=== PATIENT | male | born 1945 | race Caucasian/White ===

== ENCOUNTER → 2023-09-26 13:32 | Outpatient (REF) | payer MEDICARE, OTHER, SELFPAY ==
[2023-09-26 15:54] LABS: % Basophils 0.6 % (0-2); % Eosinophils 1.3 % (0-6); % Immature Granulocytes 0.7 % (0-0.5); % Lymphocytes 7.1 % (20.5-51.1); % Neutrophils 84.3 % (42.2-75.2); Absolute Basophils 0.1 10^3/uL (0-0.2); Absolute Eosinophils 0.1 10^3/uL (0-0.7); Absolute Immature Granulocytes 0.1 10^3/uL (0-0.05); Absolute Lymphocytes 0.8 10^3/uL (1.2-3.4); Absolute Monocytes 0.6 10^3/uL (0.1-0.6); Absolute Neutrophils 9.1 10^3/uL (1.4-6.5); Hematocrit 32.7 % (39.0-52.0); Hemoglobin 10.3 g/dL (13.0-18.0); Mean Corp Hgb Conc. 31.5 g/dL (33.0-37.0); Mean Corpuscular Hgb 29.4 pg (27.0-31.0); Mean Corpuscular Volume 93.4 fL (80.0-94.0); Mean Platelet Volume 9.5 fL (7.4-10.4); Nucleated Red Blood Cells % 0 % (-); Platelet Count 354 10^3/uL (130-400); Red Cell Dist. Width 20.5 % (11.5-14.5); White Blood Cell Count 10.7 10^3/uL (4.8-10.8)
[2023-09-26 16:07] LABS: ALT (SGPT) 21 U/L (0-50); AST (SGOT) 23 U/L (17-59); Albumin 3.7 g/dl (3.5-5.0); Alkaline Phosphatase 82 U/L (38-126); Blood Urea Nitrogen 50 mg/dl (9-20); Carbon Dioxide 30 mmol/L (22-30); Chloride 99 mmol/L (98-107); Glucose 211 mg/dl (70-99); Iron 76 ug/dl (49-181); Potassium 4.2 mmol/L (3.5-5.1); Sodium 135 mmol/L (135-145); Total Bilirubin 1.6 mg/dl (0.2-1.3); Total Protein 6.4 g/dl (6.3-8.2); eGFR 36.11
[2023-09-26 16:16] LABS: Percent Saturation 21 % (20-50); Total Iron Binding Capacity 351 ug/dl (261-462)
[2023-09-26 16:42] LABS: Ferritin 54.4 ng/ml (17.9-464.0)
== END ==
LOC: HWLAB 13:32
PROVIDERS: ATTENDING PHYSICIAN Internal Medicine Hematology & Oncology; FAMILY PHYSICIAN Internal Medicine; REFERRING PHYSICIAN Internal Medicine Cardiovascular Disease
DX: D50.9 Iron deficiency anemia, unspecified (principal); D63.1 Anemia in chronic kidney disease; E85.82 Wild-type transthyretin-related (ATTR) amyloidosis
CPT/HCPCS: 36415; 80053; 82728; 83540; 83550; 85025

== ENCOUNTER → 2023-10-18 13:24 | Outpatient (REF) | payer MEDICARE, OTHER, SELFPAY ==
[2023-10-18 16:04] LABS: % Basophils 0.7 % (0-2); % Eosinophils 2.3 % (0-6); % Immature Granulocytes 0.6 % (0-0.5); % Monocytes 6.8 % (1.7-9.3); % Neutrophils 80.6 % (42.2-75.2); Absolute Basophils 0.1 10^3/uL (0-0.2); Absolute Eosinophils 0.2 10^3/uL (0-0.7); Absolute Immature Granulocytes 0.1 10^3/uL (0-0.05); Absolute Lymphocytes 0.7 10^3/uL (1.2-3.4); Absolute Monocytes 0.6 10^3/uL (0.1-0.6); Absolute Neutrophils 6.5 10^3/uL (1.4-6.5); Hematocrit 28.8 % (39.0-52.0); Hemoglobin 8.9 g/dL (13.0-18.0); Mean Corp Hgb Conc. 30.9 g/dL (33.0-37.0); Mean Corpuscular Hgb 29.2 pg (27.0-31.0); Mean Corpuscular Volume 94.4 fL (80.0-94.0); Mean Platelet Volume 10.2 fL (7.4-10.4); Nucleated Red Blood Cells % 0 % (-); Platelet Count 234 10^3/uL (130-400); Red Blood Cell Count 3.05 10^6/uL (4.70-6.10); Red Cell Dist. Width 19.5 % (11.5-14.5); White Blood Cell Count 8.1 10^3/uL (4.8-10.8)
[2023-10-18 16:17] LABS: Blood Urea Nitrogen 42 mg/dl (9-20); Calcium 9.1 mg/dl (8.4-10.2); Carbon Dioxide 27 mmol/L (22-30); Chloride 98 mmol/L (98-107); Glucose 334 mg/dl (70-99); Potassium 4.5 mmol/L (3.5-5.1); Sodium 133 mmol/L (135-145); eGFR 44.38
== END ==
LOC: HWLAB 13:24
PROVIDERS: ATTENDING PHYSICIAN Student in an Organized Health Care Education/Training Program; FAMILY PHYSICIAN Internal Medicine; OTHER PHYSICIAN Internal Medicine Cardiovascular Disease
DX: K92.1 Melena (principal)
CPT/HCPCS: 36415; 80048; 85025

== ENCOUNTER → 2023-10-29 12:37 | Outpatient (REF) | payer MEDICARE, OTHER, SELFPAY ==
[2023-10-29 15:38] LABS: % Basophils 0.8 % (0-2); % Eosinophils 2.3 % (0-6); % Immature Granulocytes 0.4 % (0-0.5); % Lymphocytes 7.4 % (20.5-51.1); % Monocytes 7.3 % (1.7-9.3); % Neutrophils 81.8 % (42.2-75.2); Absolute Basophils 0.1 10^3/uL (0-0.2); Absolute Eosinophils 0.2 10^3/uL (0-0.7); Absolute Lymphocytes 0.6 10^3/uL (1.2-3.4); Absolute Monocytes 0.6 10^3/uL (0.1-0.6); Absolute Neutrophils 6.2 10^3/uL (1.4-6.5); Hematocrit 29.7 % (39.0-52.0); Hemoglobin 8.6 g/dL (13.0-18.0); Mean Corpuscular Hgb 27.9 pg (27.0-31.0); Mean Corpuscular Volume 96.4 fL (80.0-94.0); Mean Platelet Volume 10.4 fL (7.4-10.4); Nucleated Red Blood Cells % 0 % (-); Platelet Count 299 10^3/uL (130-400); Red Blood Cell Count 3.08 10^6/uL (4.70-6.10); Red Cell Dist. Width 18.1 % (11.5-14.5); White Blood Cell Count 7.5 10^3/uL (4.8-10.8)
[2023-10-29 15:49] LABS: Iron 47 ug/dl (49-181)
[2023-10-29 15:59] LABS: Percent Saturation 12 % (20-50); Total Iron Binding Capacity 375 ug/dl (261-462)
[2023-10-29 16:21] LABS: Ferritin 18.8 ng/ml (17.9-464.0)
== END ==
LOC: HWLAB 12:37
PROVIDERS: ATTENDING PHYSICIAN Internal Medicine Hematology & Oncology; FAMILY PHYSICIAN Internal Medicine; REFERRING PHYSICIAN Internal Medicine Cardiovascular Disease
DX: D50.9 Iron deficiency anemia, unspecified (principal); D63.1 Anemia in chronic kidney disease; E85.82 Wild-type transthyretin-related (ATTR) amyloidosis; N18.30 Chronic kidney disease, stage 3 unspecified
CPT/HCPCS: 36415; 82728; 83540; 83550; 85025

== ENCOUNTER 2023-11-09 14:06 | Emergency (ER) | payer MEDICARE, OTHER, SELFPAY ==
[2023-11-09 14:14] VITALS: BP 97/48
--- NOTE | 2023-11-09 14:45 | ED.GENMED ---
History of Present Illness
General
Chief Complaint: Fall
Source: patient
Exam Limitations: none
Time Seen by Provider: 11/09/23 14:44
Nursing documentation reviewed up to this point in time: agreed with
Travel History
Have you had any contact with someone who has COVID-19?: No
Do you have any symptoms of coronavirus? Fever > 100 degrees, chills, cough, shortness of breath, sore throat, loss of taste or smell, muscle aches, or headache?: No
History of Present Illness
History of Present Illness:
78-year-old male with sleep apnea on CPAP, A-fib on Eliquis, CHF, CAD, HTN, HLD, CKD stage III, NIDDM, cardiac stent presents with skin tears to the left forearm from scraping the areas on wall when his wheeled desk chair moved as he was reaching
for something in his desk. heard him fall and came immediately, no LOC, states 'he tapped' the back of his head on the wall. Pt denies headache, neck pain. Denies any other injury.
Past History
Past History
ED Past Medical History: Arrthythmia (Atrial fibrillation), CAD, Hypercholesterolemia, NIDDM and Other (bph, anemia-Iron Infusions, Kidney disease, Subdural hematoma, Cardiac Amyloidosis); Negative HTN
ED Past Surgical History: Cardiac (Stent), Orthopedic (Bilateral carpal tunnel, Left and right rotator cuff repair, Back surgery X 3, Right ankle surgery, ) and Other (Craniotomy)
Social History
Tobacco: Non-smoker
Alcohol: None
Drug: None
Personal:
Living: with family
Employment: Retired
Family History
Family History: Other (Noncontributory)
Review of Systems
Review of Systems
Allergies reviewed?: Yes
All Other Systems: ROS reviewed and negative except as documented in HPI and ROS
Respiratory: Denies trouble breathing
Cardiac: Denies chest pain or syncope
ABD/GI: Denies abdominal pain or nausea
: Denies incontinence
Musculoskeletal: Denies neck pain or back pain
Skin: Reports other (Deep scrapes lower aspect of left forearm, skin tear proximal left forearm)
Neurological: Denies dizzy, headache, weakness or numbness
Phy Exam
Physical Exam
Physical Exam:
GENERAL: No acute distress. A&Ox3.
CONSTITUTIONAL: Afebrile.
EYES: PERRL, conjunctivae normal
Neck: Supple
ENMT: moist mucus membranes, Pharynx nl
RESPIRATORY: Regular respirations, nonlabored, lungs clear.
CARDIOVASCULAR: Regular rate and rhythm, no murmurs, no rubs.
GI: Soft, nontender, normal BS
MUSCULOSKELETAL: No spinal bony tenderness. Full ROM comfortably LUE, no bony tenderness. Moves with ease. Well perfused.
SKIN: Warm, dry, pink, deep clean abrasions distal left forearm. Skin tear left proximal forearm.
PSYCH: Normal mood and affect. Well kept, interactive and appropriate
NEUROLOGIC: Awake, alert and oriented. No focal neurological deficits
Course
Orders/Labs/Results
Orders:
Orders
11/09/23 14:[address] [CT Head W/o Iv Contrast] Urgent
Comment:
Reason For Exam: fall on Eliquis
11/09/23 15:42
Lidocaine/Epinephrine/Tetracai [Let Topical Anesthetic Gel] 6 ml TOPICAL NOW STA
Vital Signs
Initial and Last Documented VS:
Initial Vital Signs
Temp Pulse Resp BP Pulse Ox
97.1 F 71 18 97/48 97
11/09/23 14:14 11/09/23 14:14 11/09/23 14:14 11/09/23 14:14 11/09/23 14:14
Last Documented Vital Signs
Temp Pulse Resp BP Pulse Ox
97.1 F 71 18 97/48 97
11/09/23 14:14 11/09/23 14:14 11/09/23 14:14 11/09/23 14:14 11/09/23 14:14
Procedures
Laceration Closure
Left upper forearm:
Status of Wound: clean
Preparation: cleaned with saline
Revision/Debridement: routine- no revision
Type of Closure: Dermabond-skin glue (wound edges glued to 1/2 of the wound, the other half skin is avulsed raw skin exposed, no significant bleeding, cleansed and antibiotici ointment applied, nonstick and sterile gauze dressing applied. )
MDM/Problems Addressed
MDM/Problems Addressed:
78-year-old male with sleep apnea on CPAP, A-fib on Eliquis, CHF, CAD, HTN, HLD, CKD stage III, NIDDM, cardiac stent presents with skin tears to the left forearm from scraping the areas on wall when his wheeled desk chair moved as he was reaching
for something in his desk. heard him fall and came immediately, no LOC, states 'he tapped' the back of his head on the wall. Pt denies headache, neck pain. Denies any other injury.
Head CT no acute intracranial abnormality
Wounds on left forearm numbed with LET, washed with soap and water, antibiotic ointment and nonstick and gauze dressing applied to lower forearm wounds.
Chronic conditions affecting care: HTN and Arrhythmia (on Eliquis)
*Critical Care Note
Total Time (30-74mins, 75-104mins- exclusive of procedures): Not Applicable
ED Attending Note
-
Portions of this chart may have been created with voice recognition software.� Occasional wrong word or��sound alike� substitutions may have occurred due to the inherent limitations of voice recognition software.
Discharge Plan
Departure
Patient Disposition: Home (Routine Discharge)
Date of Disposition: 11/09/23
Time of Disposition: 16:22
Patient with high blood pressure during this ER visit?: No
Condition: Good
Discharge Problem:
Fall from chair, Skin tear of left forearm without complication, Abrasion of left forearm
Instructions: Laceration Repair With Glue (DC), Skin Abrasions (DC)
Prescriptions:
No Action
atorvastatin 40 MG tablet
40 mg PO HS
cholecalciferol (vitamin D3) 5,000 UNIT tablet
5,000 unit PO DAILY
Trulicity 4.5 MG/0.5 ML pen injector
4.5 mg SQ SCHMIDT
ropinirole 2 MG tablet
4 mg PO BID
pantoprazole 40 MG tablet,delayed release (DR/EC)
40 mg PO DAILY
tamsulosin 0.4 mg Capsule
0.4 mg PO DAILY
ezetimibe 10 mg Tablet
10 mg PO DAILY
dapagliflozin propanediol [Farxiga] 10 mg Tablet
10 mg PO DAILY
Vyndamax 61 mg Capsule
61 mg PO DAILY
Eliquis 5 mg Tablet
5 mg PO BID Qty: 0 0RF
Rx Instructions:
Can resume Eliquis in 24 hours from discharge date
prednisone 10 mg Tablet
10 mg PO DIRECTED
Patient Comments:
Needs to complete one more day of 10mg then stop
famotidine 40 mg Tablet
40 mg PO DAILY PRN (Reason: heartburn)
fluticasone propionate 50 mcg/actuation [place],Suspension
1 spray INTRANASAL DAILY
torsemide 20 mg tablet
20 mg PO DAILY Qty: 30 11RF
metoprolol succinate 25 mg Tablet Extended Release 24 Hr
12.5 mg PO DAILY 30 Days Qty: 15 0RF
amiodarone [Pacerone] 200 mg Tablet
200 mg PO BID 30 Days Qty: 60 0RF
glimepiride 2 mg Tablet
2 mg PO DAILY Qty: 0 0RF
Referrals:
Garry Marie MD [Family Provider] - As needed
Activity Restrictions/Additional Instructions:
As we discussed, change the dressing in 2 days.
You may briefly wet the areas in the shower, just don't rub the glued areas.
Apply antibiotic ointment on the raw areas, apply nonstick dressing and gauze wrap
Keep wound clean, dry and covered daily until well healed (about 2-3 weeks).
Interventions
Interventions:
*Risk Screen - Suicide Last Done: 11/09/23 14:14
*General Assessment Last Done: 11/09/23 14:14
*Neglect/Abuse Screening Last Done: 11/09/23 14:14
ED-Musculoskeletal Assessment Last Done: 11/09/23 14:42
ED- Neurological Assessment Last Done: 11/09/23 14:41
ED-Skin Assessment Last Done: 11/09/23 14:41
Discharge Date and Time
Print Language: L[place]
[2023-11-09] MEDS: LET TOPICAL ANESTHETIC GEL 6 ML TOPICAL (16:15)
[2023-11-09 16:30] VITALS: BP 96/50
== END 2023-11-09 16:30 | disposition home or self-care (01) ==
LOC: EMR 14:06
PROVIDERS: EMERGENCY PHYSICIAN Emergency Medicine; FAMILY PHYSICIAN Internal Medicine
DX: S50.812A Abrasion of left forearm, initial encounter (principal); S51.812A Laceration without foreign body of left forearm, initial encounter; W07.XXXA Fall from chair, initial encounter; G47.30 Sleep apnea, unspecified; I48.91 Unspecified atrial fibrillation; I25.10 Atherosclerotic heart disease of native coronary artery without angina pectoris; I13.0 Hypertensive heart and chronic kidney disease with heart failure and stage 1 through stage 4 chronic kidney disease, or unspecified chronic kidney disease; I50.9 Heart failure, unspecified; E11.22 Type 2 diabetes mellitus with diabetic chronic kidney disease; E78.00 Pure hypercholesterolemia, unspecified; E78.5 Hyperlipidemia, unspecified; D64.9 Anemia, unspecified; N40.0 Benign prostatic hyperplasia without lower urinary tract symptoms; N18.30 Chronic kidney disease, stage 3 unspecified; Z95.5 Presence of coronary angioplasty implant and graft; Z79.01 Long term (current) use of anticoagulants
CPT/HCPCS: 99284; 12001; 70450

== ENCOUNTER → 2023-11-12 15:56 | Outpatient (REF) | payer MEDICARE, OTHER, SELFPAY | LOC: PAVMRI 15:56 | PROVIDERS: ATTENDING PHYSICIAN Physician Assistant Medical; FAMILY PHYSICIAN Internal Medicine | DX: M54.50 Low back pain, unspecified (principal); M48.062 Spinal stenosis, lumbar region with neurogenic claudication; Z98.1 Arthrodesis status | CPT/HCPCS: 72148 ==

== ENCOUNTER → 2023-11-13 11:50 | Outpatient (REF) | payer MEDICARE, OTHER, SELFPAY ==
[2023-11-13 13:06] LABS: % Basophils 0.7 % (0-2); % Immature Granulocytes 0.7 % (0-0.5); % Lymphocytes 6.4 % (20.5-51.1); % Monocytes 5.8 % (1.7-9.3); % Neutrophils 84.4 % (42.2-75.2); Absolute Basophils 0.1 10^3/uL (0-0.2); Absolute Eosinophils 0.2 10^3/uL (0-0.7); Absolute Immature Granulocytes 0.1 10^3/uL (0-0.05); Absolute Lymphocytes 0.6 10^3/uL (1.2-3.4); Absolute Monocytes 0.5 10^3/uL (0.1-0.6); Absolute Neutrophils 7.2 10^3/uL (1.4-6.5); Hematocrit 29.4 % (39.0-52.0); Hemoglobin 8.7 g/dL (13.0-18.0); Mean Corp Hgb Conc. 29.6 g/dL (33.0-37.0); Mean Corpuscular Hgb 28.8 pg (27.0-31.0); Mean Corpuscular Volume 97.4 fL (80.0-94.0); Mean Platelet Volume 9.8 fL (7.4-10.4); Nucleated Red Blood Cells % 0.2 % (-); Platelet Count 262 10^3/uL (130-400); Red Blood Cell Count 3.02 10^6/uL (4.70-6.10); Red Cell Dist. Width 22.5 % (11.5-14.5); White Blood Cell Count 8.6 10^3/uL (4.8-10.8)
[2023-11-13 13:22] LABS: Blood Urea Nitrogen 39 mg/dl (9-20); Calcium 9.3 mg/dl (8.4-10.2); Carbon Dioxide 24 mmol/L (22-30); Chloride 101 mmol/L (98-107); Glucose 150 mg/dl (70-99); Potassium 4.2 mmol/L (3.5-5.1); Sodium 138 mmol/L (135-145); eGFR 31.82
[2023-11-13 13:24] LABS: NT-proBNP 1960 pg/ml
[2023-11-13 13:53] LABS: Normal RBC Morphology No
[2023-11-13 13:55] LABS: Target Cells FEW
[2023-11-13 13:56] LABS: Poikilocytosis Slight; Tear Drop Red Blood Cells FEW
[2023-11-13 13:57] LABS: Ovalocytes FEW
== END ==
LOC: REG 11:50
PROVIDERS: ATTENDING PHYSICIAN Internal Medicine Cardiovascular Disease; FAMILY PHYSICIAN Internal Medicine
DX: I10 Essential (primary) hypertension (principal); I50.20 Unspecified systolic (congestive) heart failure
CPT/HCPCS: 36415; 80048; 83880; 85025

== ENCOUNTER 2023-11-26 15:38 | Outpatient (RCR) | payer MEDICARE, OTHER, SELFPAY ==
[2023-11-26 12:01] LABS: % Basophils 0.6 % (0-2); % Eosinophils 1.9 % (0-6); % Immature Granulocytes 0.5 % (0-0.5); % Lymphocytes 7.1 % (20.5-51.1); % Monocytes 8.9 % (1.7-9.3); Absolute Eosinophils 0.1 10^3/uL (0-0.7); Absolute Lymphocytes 0.5 10^3/uL (1.2-3.4); Absolute Monocytes 0.6 10^3/uL (0.1-0.6); Absolute Neutrophils 5.2 10^3/uL (1.4-6.5); Hematocrit 32.3 % (39.0-52.0); Hemoglobin 9.8 g/dL (13.0-18.0); Mean Corp Hgb Conc. 30.3 g/dL (33.0-37.0); Mean Corpuscular Hgb 29.8 pg (27.0-31.0); Mean Corpuscular Volume 98.2 fL (80.0-94.0); Mean Platelet Volume 10.1 fL (7.4-10.4); Nucleated Red Blood Cells % 0 % (-); Platelet Count 248 10^3/uL (130-400); Red Blood Cell Count 3.29 10^6/uL (4.70-6.10); Red Cell Dist. Width 21.5 % (11.5-14.5); White Blood Cell Count 6.4 10^3/uL (4.8-10.8)
== END 2023-12-11 23:59 | disposition home or self-care (01) ==
LOC: OID 15:38
PROVIDERS: ATTENDING PHYSICIAN Internal Medicine Hematology & Oncology
DX: D50.9 Iron deficiency anemia, unspecified (principal); D63.1 Anemia in chronic kidney disease; E85.82 Wild-type transthyretin-related (ATTR) amyloidosis
CPT/HCPCS: 85025; 86850; 86900; 86901; 86920

== ENCOUNTER → 2023-11-28 17:37 | Outpatient (REF) | payer MEDICARE, OTHER, SELFPAY ==
[2023-11-28 18:19] LABS: % Basophils 0.7 % (0-2); % Eosinophils 2.8 % (0-6); % Immature Granulocytes 0.3 % (0-0.5); % Lymphocytes 6.9 % (20.5-51.1); % Monocytes 8.7 % (1.7-9.3); % Neutrophils 80.6 % (42.2-75.2); Absolute Basophils 0.1 10^3/uL (0-0.2); Absolute Eosinophils 0.2 10^3/uL (0-0.7); Absolute Lymphocytes 0.5 10^3/uL (1.2-3.4); Absolute Monocytes 0.7 10^3/uL (0.1-0.6); Absolute Neutrophils 6.1 10^3/uL (1.4-6.5); Mean Corp Hgb Conc. 30.3 g/dL (33.0-37.0); Mean Corpuscular Hgb 29.5 pg (27.0-31.0); Mean Corpuscular Volume 97.3 fL (80.0-94.0); Mean Platelet Volume 9.9 fL (7.4-10.4); Nucleated Red Blood Cells % 0 % (-); Platelet Count 269 10^3/uL (130-400); Red Blood Cell Count 3.39 10^6/uL (4.70-6.10); Red Cell Dist. Width 20.9 % (11.5-14.5); White Blood Cell Count 7.6 10^3/uL (4.8-10.8)
[2023-11-28 18:32] LABS: Blood Urea Nitrogen 52 mg/dl (9-20); Calcium 9.5 mg/dl (8.4-10.2); Carbon Dioxide 29 mmol/L (22-30); Chloride 98 mmol/L (98-107); Glucose 112 mg/dl (70-99); Potassium 3.9 mmol/L (3.5-5.1); Sodium 138 mmol/L (135-145); eGFR 30.09
== END ==
LOC: REG 17:37
PROVIDERS: ATTENDING PHYSICIAN Internal Medicine Cardiovascular Disease; FAMILY PHYSICIAN Internal Medicine; OTHER PHYSICIAN Emergency Medicine; OTHER PHYSICIAN Nurse Practitioner Primary Care
DX: D50.9 Iron deficiency anemia, unspecified (principal); D63.1 Anemia in chronic kidney disease; E85.82 Wild-type transthyretin-related (ATTR) amyloidosis
CPT/HCPCS: 36415; 80048; 85025

== ENCOUNTER → 2023-11-30 12:58 | Outpatient (REF) | payer MEDICARE, OTHER, SELFPAY ==
[2023-11-30 14:25] LABS: Urine Albumin Trace (Neg - Trace); Urine Bilirubin Negative (Negative); Urine Character Clear (Clear); Urine Color Yellow; Urine Glucose 3+ (Negative); Urine Ketone Negative (Negative); Urine Leukocyte Negative (Negative); Urine Nitrite Negative (Negative); Urine Occult Blood Negative (Negative); Urine Urobilinogen 2+ (Neg - 1+)
[2023-11-30 14:28] LABS: % Basophils 0.7 % (0-2); % Eosinophils 2.7 % (0-6); % Immature Granulocytes 0.3 % (0-0.5); % Lymphocytes 7.6 % (20.5-51.1); % Monocytes 8.5 % (1.7-9.3); % Neutrophils 80.2 % (42.2-75.2); Absolute Basophils 0.1 10^3/uL (0-0.2); Absolute Eosinophils 0.2 10^3/uL (0-0.7); Absolute Lymphocytes 0.6 10^3/uL (1.2-3.4); Absolute Monocytes 0.6 10^3/uL (0.1-0.6); Absolute Neutrophils 6.1 10^3/uL (1.4-6.5); Hematocrit 33.7 % (39.0-52.0); Hemoglobin 9.9 g/dL (13.0-18.0); Mean Corp Hgb Conc. 29.4 g/dL (33.0-37.0); Mean Corpuscular Hgb 29.3 pg (27.0-31.0); Mean Corpuscular Volume 99.7 fL (80.0-94.0); Mean Platelet Volume 9.7 fL (7.4-10.4); Nucleated Red Blood Cells % 0 % (-); Platelet Count 225 10^3/uL (130-400); Red Blood Cell Count 3.38 10^6/uL (4.70-6.10); Red Cell Dist. Width 20.3 % (11.5-14.5); White Blood Cell Count 7.5 10^3/uL (4.8-10.8)
[2023-11-30 15:02] LABS: ALT (SGPT) 17 U/L (0-50); AST (SGOT) 21 U/L (17-59); Alkaline Phosphatase 98 U/L (38-126); Blood Urea Nitrogen 44 mg/dl (9-20); Calcium 9.4 mg/dl (8.4-10.2); Carbon Dioxide 31 mmol/L (22-30); Chloride 102 mmol/L (98-107); Glucose 108 mg/dl (70-99); Iron 52 ug/dl (49-181); Magnesium 2.5 mg/dl (1.6-2.3); Potassium 4.2 mmol/L (3.5-5.1); Sodium 139 mmol/L (135-145); Total Bilirubin 1.7 mg/dl (0.2-1.3); Total Cholesterol 69 mg/dl (50-199); Total Protein 6.4 g/dl (6.3-8.2); Triglyceride 63 mg/dl (10-149); Uric Acid 9.5 mg/dl (3.5-8.5); Very Low Density Lipoprotein 12 mg/dl (0-30); eGFR 33.74
[2023-11-30 15:08] LABS: HDL Cholesterol 31 mg/dl; LDL Cholesterol, Calculated 26 mg/dl
[2023-11-30 15:11] LABS: Percent Saturation 14 % (20-50); Total Iron Binding Capacity 353 ug/dl (261-462)
[2023-11-30 15:15] LABS: Protein/creatinine Ratio 0.5; Urine Protein 32 mg/dl
[2023-11-30 15:19] LABS: Alkaline Phosphatase 98 U/L (38-126)
[2023-11-30 15:20] LABS: Microalbumin, Random Urine 12.5 mg/dl (0.6-1.7); Microalbumin/creatinine Ratio 191.7 mg/g
[2023-11-30 15:27] LABS: Free T4 1.89 ng/dl (0.78-2.19); Total Thyroxine 6.87 ug/dl (5.5-11.0); Vitamin D, 25-OH*** 50.3 ng/mL (30-80)
[2023-11-30 15:44] LABS: Ferritin 31.8 ng/ml (17.9-464.0)
[2023-11-30 16:16] LABS: Folate 13.7 ng/ml (2.76-20); Vitamin B12 592 pg/ml (239-931)
[2023-12-01 10:34] LABS: Glycohemoglobin (HgbA1c) 5.8 % (4.0-5.6)
== END ==
LOC: REG 12:58
PROVIDERS: ATTENDING PHYSICIAN Internal Medicine Endocrinology, Diabetes & Metabolism; FAMILY PHYSICIAN Internal Medicine; OTHER PHYSICIAN Emergency Medicine; OTHER PHYSICIAN Internal Medicine Cardiovascular Disease
DX: E11.65 Type 2 diabetes mellitus with hyperglycemia (principal); E78.2 Mixed hyperlipidemia; I10 Essential (primary) hypertension; E55.9 Vitamin D deficiency, unspecified; D51.9 Vitamin B12 deficiency anemia, unspecified; I12.9 Hypertensive chronic kidney disease with stage 1 through stage 4 chronic kidney disease, or unspecified chronic kidney disease; N18.30 Chronic kidney disease, stage 3 unspecified; K92.1 Melena; N18.31 Chronic kidney disease, stage 3a; N17.9 Acute kidney failure, unspecified
CPT/HCPCS: 36415; 80053; 80061; 81003; 82043; 82306; 82570; 82607; 82728; 82746; 83036; 83540; 83550; 83735; 84075; 84156; 84436; 84439; 84443; 84550; 85025

== ENCOUNTER 2023-12-01 09:37 | Emergency (ER) | payer MEDICARE, OTHER, SELFPAY ==
[2023-12-01 09:38] VITALS: BP 122/72
[2023-12-01 09:43] VITALS: BP 122/72
[2023-12-01 09:50] VITALS: BMI 30.1
[2023-12-01 10:00] VITALS: BP 97/62
[2023-12-01 10:13] LABS: % Basophils 0.9 % (0-2); % Eosinophils 1.5 % (0-6); % Immature Granulocytes 0.3 % (0-0.5); % Lymphocytes 8.3 % (20.5-51.1); % Monocytes 8.5 % (1.7-9.3); % Neutrophils 80.5 % (42.2-75.2); Absolute Basophils 0.1 10^3/uL (0-0.2); Absolute Eosinophils 0.1 10^3/uL (0-0.7); Absolute Lymphocytes 0.5 10^3/uL (1.2-3.4); Absolute Monocytes 0.6 10^3/uL (0.1-0.6); Absolute Neutrophils 5.2 10^3/uL (1.4-6.5); Hematocrit 32.9 % (39.0-52.0); Hemoglobin 9.8 g/dL (13.0-18.0); Mean Corp Hgb Conc. 29.8 g/dL (33.0-37.0); Mean Corpuscular Hgb 28.7 pg (27.0-31.0); Mean Corpuscular Volume 96.5 fL (80.0-94.0); Mean Platelet Volume 9.9 fL (7.4-10.4); Nucleated Red Blood Cells % 0 % (-); Platelet Count 249 10^3/uL (130-400); Red Blood Cell Count 3.41 10^6/uL (4.70-6.10); Red Cell Dist. Width 20.2 % (11.5-14.5); White Blood Cell Count 6.5 10^3/uL (4.8-10.8)
[2023-12-01 10:16] LABS: ALT (SGPT) 17 U/L (0-50); AST (SGOT) 23 U/L (17-59); Albumin 3.9 g/dl (3.5-5.0); Alkaline Phosphatase 92 U/L (38-126); Blood Urea Nitrogen 47 mg/dl (9-20); Calcium 9.2 mg/dl (8.4-10.2); Carbon Dioxide 27 mmol/L (22-30); Chloride 103 mmol/L (98-107); Estimated Creatinine Clearance 35 ml/min; Glucose 108 mg/dl (70-99); Potassium 4.1 mmol/L (3.5-5.1); Sodium 140 mmol/L (135-145); Total Bilirubin 1.7 mg/dl (0.2-1.3); eGFR 31.82
--- NOTE | 2023-12-01 10:33 | ED.GENMED ---
History of Present Illness
General
Chief Complaint: Abdominal Symptoms
Source: patient, records and spouse
Exam Limitations: none
Time Seen by Provider: 12/01/23 09:39
Nursing documentation reviewed up to this point in time: agreed with
Travel History
Have you had any contact with someone who has COVID-19?: No
Do you have any symptoms of coronavirus? Fever > 100 degrees, chills, cough, shortness of breath, sore throat, loss of taste or smell, muscle aches, or headache?: No
History of Present Illness
History of Present Illness:
Patient is a 78-year-old male who presents to the emergency department with nausea and vomiting repeatedly since yesterday and feeling dehydrated. Patient denies syncope but does feel weak and lightheaded. Patient denies any abdominal pain, chest
pain, shortness of breath or palpitations. Patient denies any hematemesis. Patient denies any melena or hematochezia. Patient has a history of GI issues and melena but denies any of that today. Patient denies any syncope or falling. Patient
denies any recent injuries.
Past History
Past History
ED Past Medical History: Arrthythmia (Atrial fibrillation), CAD, Hypercholesterolemia, NIDDM and Other (bph, anemia-Iron Infusions, Kidney disease, Subdural hematoma, Cardiac Amyloidosis); Negative HTN
ED Past Surgical History: Cardiac (Stent), Orthopedic (Bilateral carpal tunnel, Left and right rotator cuff repair, Back surgery X 3, Right ankle surgery, ) and Other (Craniotomy)
Social History
Tobacco: Non-smoker
Alcohol: None
Drug: None
Personal:
Living: with family
Employment: Retired
Family History
Family History: Other (Noncontributory)
Review of Systems
Review of Systems
All Other Systems: ROS reviewed and negative except as documented in HPI and ROS
Constitutional: Reports fatigue; Denies fever or chills
EENT: Reports no symptoms
Respiratory: Reports no symptoms
Cardiac: Reports no symptoms
ABD/GI: Reports nausea, vomiting and anorexia; Denies abdominal pain, diarrhea, constipated, bloody stools or black stools
: Reports no symptoms
Musculoskeletal: Reports no symptoms
Skin: Reports no symptoms
Neurological: Reports no symptoms
Hematologic/Lymphatic: Reports no symptoms
Phy Exam
Physical Exam
Physical Exam:
Physical Exam
General: mild distress, alert and appropriate, well nourished, dry mucous membranes
HENT: Normocephalic, supple with no lymphadenopathy, no thyromegaly
Eyes: Clear sclera, conjuctiva without injection
Heart: Regular rhythm and rate. No S3, S4. No murmur.
Lungs: No respiratory distress, no stridor, lung sounds clear and equal bilaterally
Abdomen: Soft, nontender, no organomegaly, enderness, BS good
Neuro: Alert and oriented x 3, CN II - XII intact, no motor focality, no cerebellar dysfunction
Skin: no rash
Psychiatric: well kept. interactive and cooperative
Extremities: No cyanosis, tenderness. Trace pretibial and ankle edema bilaterally
Scores
Heart Failure Risk
Heart Failure Risk Score: Not Applicable
Heart Score for Chest Pain Patients
STEMI patient?: Not applicable
Withdrawal Assessment of Alcohol
Withdrawal Assessment Completed?: Not applicable
Course
Orders/Labs/Results
Orders:
Orders
12/01/23 09:46
CMP [Comprehensive Metabolic Panel] Urgent
Complete Blood Count/With Diff Urgent
Lipase Urgent
12/01/23 10:32
0.9% Sodium Chloride 1000 ml [Nss] 1,000 ml IV BOLUS
Ondansetron Injectable [Zofran] 4 mg IV NOW STA
Pantoprazole [Protonix IV] 80 mg IV NOW STA
Sucralfate [Carafate] 1 gram PO NOW STA
12/01/23 10:33
Add On- LAB Urgent
Tests Added?: lipase
12/01/23 10:38
Electrocardiogram (*1) Urgent
Reason for Study: Fatigue / Weakness
EKG- Treatment ONCE
12/01/23 10:45
Sterile Water [Sterile Water For Injection] 20 ml .ROUTE .STK-MED
12/01/23 10:52
Troponin I Urgent
Abnormal Lab Results
12/01/23 12/01/23
09:46 10:52
RBC 3.41 L 10^6/uL
(4.70-6.10)
Hgb 9.8 L g/dL
(13.0-18.0)
Hct 32.9 L %
(39.0-52.0)
MCV 96.5 H fL
(80.0-94.0)
MCHC 29.8 L g/dL
(33.0-37.0)
RDW 20.2 H %
(11.5-14.5)
Absolute Lymphs (auto) 0.5 L 10^3/uL
(1.2-3.4)
Neutrophils % 80.5 H %
(42.2-75.2)
Lymphocytes % 8.3 L %
(20.5-51.1)
BUN 47 H mg/dl
(9-20)
Creatinine 2.1 H mg/dL
(0.7-1.3)
Glucose 108 H mg/dl
(70-99)
Total Bilirubin 1.7 H mg/dl
(0.2-1.3)
Troponin I 0.189 H* ng/ml
Total Protein 6.0 L g/dl
(6.3-8.2)
12/01/23 09:46
12/01/23 09:46
Vital Signs
Initial and Last Documented VS:
Initial Vital Signs
Temp Pulse Resp BP Pulse Ox
97.7 F 83 16 122/72 94
12/01/23 09:38 12/01/23 09:38 12/01/23 09:38 12/01/23 09:38 12/01/23 09:38
Last Documented Vital Signs
Temp Pulse Resp BP Pulse Ox
97.7 F 83 16 122/72 94
12/01/23 09:38 12/01/23 09:38 12/01/23 09:38 12/01/23 09:38 12/01/23 09:38
*Pulse Oximetry
Patient hypoxic: no
*EKG
Interpreted by ED Provider?: Yes
EKG Intrepretation Date: 12/01/23
EKG Intrepretation Time: 12:48
Interpretation: abnormal
Comparison EKG: changes noted (Longer QT but otherwise unremarkable)
Heart Rate: 64
Rate: normal
Rhythm: sinus
[place]: left axis deviation
Interval: first degree heart block and long QT
QRS Pattern: normal QRS
Ischemia: non-specific ST changes
*Package Pick Up Interpretation
Rate: normal
Interpretation: normal
Heart Rate: 64
Rhythm: sinus
*Critical Care Note
Total Time (30-74mins, 75-104mins- exclusive of procedures): Not Applicable
Update Note
Update Note:
Patient is doing better. Patient has a prescription for Zofran. However looking at the patient's QT interval it does appear long. Will switch the patient to Phenergan. Patient will continue other medications although will hold the turosemide.
ED Attending Note
-
Portions of this chart may have been created with voice recognition software.� Occasional wrong word or��sound alike� substitutions may have occurred due to the inherent limitations of voice recognition software.
Discharge Plan
Departure
Patient Disposition: Home (Routine Discharge)
Date of Disposition: 12/01/23
Time of Disposition: 12:50
Patient with high blood pressure during this ER visit?: No
Condition: Fair
Covid-19: Not Applicable
Discharge Problem:
Acute dehydration, Nausea & vomiting, Long QT interval
Instructions: Dehydration, Adult (DC), [place] Diet, Nausea and Vomiting, Adult (DC)
Prescriptions:
New
promethazine 25 mg suppository
25 mg [place] Q6H PRN (Reason: nausea and vomiting) Qty: 20 0RF
promethazine 25 mg tablet
25 mg PO Q6H PRN (Reason: nausea and vomiting) Qty: 20 0RF
No Action
atorvastatin 40 MG tablet
40 mg PO HS
cholecalciferol (vitamin D3) 5,000 UNIT tablet
5,000 unit PO DAILY
Trulicity 4.5 MG/0.5 ML pen injector
4.5 mg SQ SCHMIDT
ropinirole 2 MG tablet
4 mg PO BID
pantoprazole 40 MG tablet,delayed release (DR/EC)
40 mg PO DAILY
tamsulosin 0.4 mg Capsule
0.4 mg PO DAILY
ezetimibe 10 mg Tablet
10 mg PO DAILY
dapagliflozin propanediol [Farxiga] 10 mg Tablet
10 mg PO DAILY
Vyndamax 61 mg Capsule
61 mg PO DAILY
Eliquis 5 mg Tablet
5 mg PO BID Qty: 0 0RF
Rx Instructions:
Can resume Eliquis in 24 hours from discharge date
famotidine 40 mg Tablet
40 mg PO DAILY PRN (Reason: heartburn)
fluticasone propionate 50 mcg/actuation [place],Suspension
1 spray INTRANASAL DAILY
torsemide 20 mg tablet
20 mg PO DAILY Qty: 30 11RF
metoprolol succinate 25 mg Tablet Extended Release 24 Hr
12.5 mg PO DAILY 30 Days Qty: 15 0RF
amiodarone [Pacerone] 200 mg Tablet
200 mg PO BID 30 Days Qty: 60 0RF
glimepiride 2 mg Tablet
2 mg PO DAILY Qty: 0 0RF
Referrals:
Garry Marie MD [Family Provider] - Follow up in 2-3 days
Activity Restrictions/Additional Instructions:
Hold torsemide today but can start it tomorrow. Use the 4 mg of Zofran 3 times a day for the next 48 hours and/or Phenergan
Interventions
Interventions:
*Risk Screen - Suicide Last Done: 12/01/23 09:38
*General Assessment Last Done: 12/01/23 09:38
*Neglect/Abuse Screening Last Done: 12/01/23 09:38
ED- Fall Risk Assessment Last Done: 12/01/23 10:01
*ED COVID-19 Vaccine History Last Done: 12/01/23 09:38
OL-Oleiik-Hlqhkkbuvd Assessment Last Done: 12/01/23 10:01
Discharge Date and Time
Print Language: WELSH
[2023-12-01] MEDS: ZOFRAN 4 MG IV (10:53)
[2023-12-01] MEDS: NSS 1000 IV (10:53)
[2023-12-01] MEDS: CARAFATE 1 GRAM PO (10:53)
[2023-12-01] MEDS: PROTONIX IV 80 MG IV (10:53)
[2023-12-01 11:00] VITALS: BP 96/60
[2023-12-01 11:11] LABS: Lipase 196 U/L (23-300)
[2023-12-01 11:50] LABS: Troponin I 0.189 ng/ml
[2023-12-01 12:00] VITALS: BP 94/57
[2023-12-01 13:36] VITALS: BP 93/59
== END 2023-12-01 14:00 | disposition home or self-care (01) ==
LOC: EMR 09:37
PROVIDERS: EMERGENCY PHYSICIAN Emergency Medicine; FAMILY PHYSICIAN Internal Medicine
DX: E86.0 Dehydration (principal); R11.2 Nausea with vomiting, unspecified; R94.31 Abnormal electrocardiogram [ECG] [EKG]; I48.91 Unspecified atrial fibrillation; I25.10 Atherosclerotic heart disease of native coronary artery without angina pectoris; E78.00 Pure hypercholesterolemia, unspecified; D64.9 Anemia, unspecified; N40.0 Benign prostatic hyperplasia without lower urinary tract symptoms; E11.22 Type 2 diabetes mellitus with diabetic chronic kidney disease; I13.0 Hypertensive heart and chronic kidney disease with heart failure and stage 1 through stage 4 chronic kidney disease, or unspecified chronic kidney disease; N18.30 Chronic kidney disease, stage 3 unspecified; G47.30 Sleep apnea, unspecified; Z95.5 Presence of coronary angioplasty implant and graft
CPT/HCPCS: 99284; 96374; 96375; 96361; 80053; 83690; 84484; 85025; 93005

== ENCOUNTER → 2023-12-13 13:26 | Outpatient (REF) | payer MEDICARE, OTHER, SELFPAY ==
[2023-12-13 16:17] LABS: % Basophils 0.2 % (0-2); % Eosinophils 1.4 % (0-6); % Immature Granulocytes 0.7 % (0-0.5); % Lymphocytes 4.1 % (20.5-51.1); % Monocytes 7.5 % (1.7-9.3); % Neutrophils 86.1 % (42.2-75.2); Absolute Eosinophils 0.2 10^3/uL (0-0.7); Absolute Immature Granulocytes 0.1 10^3/uL (0-0.05); Absolute Lymphocytes 0.6 10^3/uL (1.2-3.4); Absolute Monocytes 1.1 10^3/uL (0.1-0.6); Absolute Neutrophils 12.3 10^3/uL (1.4-6.5); Hematocrit 36.2 % (39.0-52.0); Hemoglobin 10.8 g/dL (13.0-18.0); Mean Corp Hgb Conc. 29.8 g/dL (33.0-37.0); Mean Corpuscular Hgb 27.6 pg (27.0-31.0); Mean Corpuscular Volume 92.6 fL (80.0-94.0); Nucleated Red Blood Cells % 0 % (-); Platelet Count 320 10^3/uL (130-400); Red Blood Cell Count 3.91 10^6/uL (4.70-6.10); Red Cell Dist. Width 18.9 % (11.5-14.5); White Blood Cell Count 14.3 10^3/uL (4.8-10.8)
[2023-12-13 16:19] LABS: Iron 72 ug/dl (49-181)
[2023-12-13 16:28] LABS: Percent Saturation 20 % (20-50); Total Iron Binding Capacity 352 ug/dl (261-462)
[2023-12-13 16:55] LABS: Ferritin 27.2 ng/ml (17.9-464.0)
== END ==
LOC: HWLAB 13:26
PROVIDERS: ATTENDING PHYSICIAN Internal Medicine Hematology & Oncology; FAMILY PHYSICIAN Internal Medicine
DX: D50.9 Iron deficiency anemia, unspecified (principal); D63.1 Anemia in chronic kidney disease; E85.82 Wild-type transthyretin-related (ATTR) amyloidosis
CPT/HCPCS: 36415; 82728; 83540; 83550; 85025

== ENCOUNTER → 2023-12-26 11:01 | Outpatient (REF) | payer MEDICARE, OTHER, SELFPAY ==
[2023-12-26 16:44] LABS: % Basophils 0.4 % (0-2); % Eosinophils 2.7 % (0-6); % Immature Granulocytes 0.2 % (0-0.5); % Lymphocytes 6.9 % (20.5-51.1); % Monocytes 7.1 % (1.7-9.3); % Neutrophils 82.7 % (42.2-75.2); Absolute Eosinophils 0.2 10^3/uL (0-0.7); Absolute Lymphocytes 0.6 10^3/uL (1.2-3.4); Absolute Monocytes 0.6 10^3/uL (0.1-0.6); Absolute Neutrophils 7.4 10^3/uL (1.4-6.5); Hematocrit 37.7 % (39.0-52.0); Mean Corp Hgb Conc. 29.2 g/dL (33.0-37.0); Mean Corpuscular Hgb 27.3 pg (27.0-31.0); Mean Corpuscular Volume 93.5 fL (80.0-94.0); Mean Platelet Volume 10.4 fL (7.4-10.4); Nucleated Red Blood Cells % 0 % (-); Platelet Count 209 10^3/uL (130-400); Red Blood Cell Count 4.03 10^6/uL (4.70-6.10); Red Cell Dist. Width 18.8 % (11.5-14.5)
[2023-12-26 16:50] LABS: Microalbumin, Random Urine 13.4 mg/dl (0.6-1.7); Microalbumin/creatinine Ratio 165.6 mg/g
[2023-12-26 16:55] LABS: ALT (SGPT) 27 U/L (0-50); AST (SGOT) 23 U/L (17-59); Albumin 3.7 g/dl (3.5-5.0); Alkaline Phosphatase 82 U/L (38-126); Blood Urea Nitrogen 43 mg/dl (9-20); Calcium 9.4 mg/dl (8.4-10.2); Carbon Dioxide 28 mmol/L (22-30); Chloride 102 mmol/L (98-107); Glucose 175 mg/dl (70-99); HDL Cholesterol 35 mg/dl; LDL Cholesterol, Calculated 50 mg/dl; Potassium 4.7 mmol/L (3.5-5.1); Sodium 138 mmol/L (135-145); Total Bilirubin 1.3 mg/dl (0.2-1.3); Total Cholesterol 97 mg/dl (50-199); Triglyceride 61 mg/dl (10-149); Very Low Density Lipoprotein 12 mg/dl (0-30)
[2023-12-26 17:05] LABS: NT-proBNP 2390 pg/ml
== END ==
LOC: HWLAB 11:01
PROVIDERS: ATTENDING PHYSICIAN Nurse Practitioner Primary Care; FAMILY PHYSICIAN Internal Medicine; REFERRING PHYSICIAN Internal Medicine Cardiovascular Disease
DX: D50.9 Iron deficiency anemia, unspecified (principal); D63.1 Anemia in chronic kidney disease; E85.82 Wild-type transthyretin-related (ATTR) amyloidosis; I48.0 Paroxysmal atrial fibrillation; E11.69 Type 2 diabetes mellitus with other specified complication; N18.4 Chronic kidney disease, stage 4 (severe)
CPT/HCPCS: 36415; 80053; 80061; 82043; 82570; 83880; 84439; 84443; 85025

== ENCOUNTER 2024-01-23 21:42 | Emergency (ER) | payer MEDICARE, OTHER, SELFPAY ==
[2024-01-23 21:43] VITALS: BP 114/68
--- NOTE | 2024-01-23 22:31 | ED.GENMED ---
History of Present Illness
General
Chief Complaint: Head Injury
Source: patient
Exam Limitations: none
Time Seen by Provider: 01/23/24 22:05
Travel History
Have you had any contact with someone who has COVID-19?: No
Do you have any symptoms of coronavirus? Fever > 100 degrees, chills, cough, shortness of breath, sore throat, loss of taste or smell, muscle aches, or headache?: No
History of Present Illness
History of Present Illness:
This is a 78 year old male that comes in with c/o hitting his head. States that he hit his head on the wall as he has balance issues due to his Cardiac Amyloidosis. States that he is on Eliquis and he has had a subdural hematoma in the past. Denies
any LOC. Denies any fever, chills, chest pain, SOB, abd pain, nausea, vomiting, diarrhea, headache, dizziness, urinary burning.
Past History
Past History
ED Past Medical History: Arrthythmia (Atrial fibrillation), CAD, CHF, HTN, Hypercholesterolemia, NIDDM and Other (bph, anemia-Iron Infusions, Kidney disease, Subdural hematoma, Cardiac Amyloidosis, Sleep apnea uses CPAP)
ED Past Surgical History: Cardiac (Stent, Ablation), Cholecystectomy, Orthopedic (Bilateral carpal tunnel, Left and right rotator cuff repair, Back surgery X 2, Right ankle surgery, ) and Other (Craniotomy)
Social History
Tobacco: Non-smoker
Alcohol: None
Drug: None
Personal:
Living: with family
Employment: Retired
Family History
Family History: Other (Noncontributory)
Review of Systems
Review of Systems
All Other Systems: ROS reviewed and negative except as documented in HPI and ROS
Constitutional: Reports no symptoms; Denies fever or chills
EENT: Reports no symptoms
Respiratory: Reports no symptoms; Denies cough or trouble breathing
Cardiac: Reports no symptoms; Denies chest pain
ABD/GI: Reports no symptoms; Denies abdominal pain, nausea, vomiting or diarrhea
: Reports no symptoms; Denies dysuria, frequency or urgency
Musculoskeletal: Reports no symptoms
Skin: Reports other (abrasion to the back of head,)
Neurological: Reports no symptoms; Denies dizzy or headache
Psychiatric: Reports no symptoms
Phy Exam
General Physical Exam
General Presentation: well appearing and no apparent distress
General age: appears stated age
General Skin: warm and dry
General Habitus: elderly
General Mental: alert
General Hydration: appears well hydrated
ENT Exam
ENT Exam: TM's normal, pharynx normal and neck supple
Eye Exam
Eye Exam: EOMI
Cardiovascular Exam
Cardiovascular Exam: regular rate/rhythm, no murmur and normal peripheral pulses
Pulmonary Exam
Pulmonary Exam: lungs clear, no respiratory distress, no rales, chest non tender, no crackles, no rhonchi, no wheezing and no cough
Musculoskeletal Exam
Musculoskeletal Exam: full ROM and other (Negative for any cervical neck or spinal tenderness. Patient can abduct, Cross over. flex elbows and move fingers and wrist without discomfort. )
Skin Exam
Skin Exam: normal color, warm/dry, no rash, no petechia and other (Small abrasion to the posterior scalp. Skin tear noted on the right forearm. )
Psychiatric Exam
Psychiatric Exam: normal mood/affect
Course
Orders/Labs/Results
Orders:
Orders
01/23/24 22:03
CT Head W/o Iv Contrast Urgent
Comment:
Reason For Exam: fall on Eliquis
Cervical Spine wo Contrast CT [CT Cervical Spine W/o Iv Contr] Urgent
Comment:
Reason For Exam: fall on Eliquis
Vital Signs
Initial and Last Documented VS:
Initial Vital Signs
Temp Pulse Resp BP Pulse Ox
98.0 F 73 18 114/68 99
01/23/24 21:43 01/23/24 21:43 06/12/24 21:43 01/23/24 21:43 01/23/24 21:43
Last Documented Vital Signs
Temp Pulse Resp BP Pulse Ox
98.0 F 73 18 114/68 99
01/23/24 21:43 01/23/24 21:43 01/23/24 21:43 01/23/24 21:43 01/23/24 21:43
MDM/Problems Addressed
Differential Diagnosis Includes:
Subdural hematoma. Skin abrasion.
MDM/Problems Addressed:
This is a 78 year old male that comes in with c/o hitting his head on the wall. States that he has balance issues and he lost his balance and hit his head. States that he did not fall to the ground.
Will get CT head and cervical spine.
Back into see patient. Explained that there are degenerative changes in the cervical spine and the CT of the head is negative for any acute process. Will discharge patient home.
Chronic conditions affecting care:
history of Subdural hematoma
Acute Exacerbation and/or Progression of Chronic Illness:
NA
*Radiology
Radiology exam reviewed: radiology read reviewed (CT head-NO acute intracranial abnormality noted. Stable chronic findings, as above. Cervical spine-No acute fracture or dislocation. Chronic advanced degenerative changes of the cervical spine. )
*Pulse Oximetry
Patient hypoxic: no
*EKG
Interpreted by ED Provider?: NA
Rate: EKG- N/A
*Nutrition Aides Teacher Interpretation
Rate: Nutrition Aides Teacher- N/A
*Critical Care Note
Total Time (30-74mins, 75-104mins- exclusive of procedures): Not Applicable
ED Attending Note
-
Portions of this chart may have been created with voice recognition software.� Occasional wrong word or��sound alike� substitutions may have occurred due to the inherent limitations of voice recognition software.
Discharge Plan
Departure
Patient Disposition: Home (Routine Discharge)
Date of Disposition: 01/23/24
Time of Disposition: 22:54
Patient with high blood pressure during this ER visit?: No
Condition: Good
Covid-19: Not Applicable
Discharge Problem:
Minor closed head injury, Abrasion of skin
Instructions: Wound Care (DC), Head Injury in Adults (DC)
Prescriptions:
No Action
atorvastatin 40 MG tablet
40 mg PO HS
cholecalciferol (vitamin D3) 5,000 UNIT tablet
5,000 unit PO DAILY
Trulicity 4.5 MG/0.5 ML pen injector
4.5 mg SQ SCHMIDT
ropinirole 2 MG tablet
4 mg PO BID
pantoprazole 40 MG tablet,delayed release (DR/EC)
40 mg PO DAILY
tamsulosin 0.4 mg Capsule
0.4 mg PO DAILY
ezetimibe 10 mg Tablet
10 mg PO DAILY
dapagliflozin propanediol [Farxiga] 10 mg Tablet
10 mg PO DAILY
Vyndamax 61 mg Capsule
61 mg PO DAILY
Eliquis 5 mg Tablet
5 mg PO BID Qty: 0 0RF
Rx Instructions:
Can resume Eliquis in 24 hours from discharge date
famotidine 40 mg Tablet
40 mg PO DAILY PRN (Reason: heartburn)
fluticasone propionate 50 mcg/actuation [place],Suspension
1 spray INTRANASAL DAILY
torsemide 20 mg tablet
20 mg PO DAILY Qty: 30 11RF
metoprolol succinate 25 mg Tablet Extended Release 24 Hr
12.5 mg PO DAILY 30 Days Qty: 15 0RF
amiodarone [Pacerone] 200 mg Tablet
200 mg PO BID 30 Days Qty: 60 0RF
glimepiride 2 mg Tablet
2 mg PO DAILY Qty: 0 0RF
promethazine 25 mg suppository
25 mg [place] Q6H PRN (Reason: nausea and vomiting) Qty: 20 0RF
promethazine 25 mg tablet
25 mg PO Q6H PRN (Reason: nausea and vomiting) Qty: 20 0RF
gabapentin 100 mg capsule
200 mg PO HS Qty: 20 0RF
Referrals:
Garry Marie MD [Family Provider] - Call in 1-3 days for appt
Activity Restrictions/Additional Instructions:
As discussed, your CT of the head is negative for any acute process. The cervical spine shows degenerative changes. You also have a small abrasion to the back of your head and the right forearm. Please keep these area clean. Follow up with the
family doctor for recheck. IF YOU HAVE ANY OTHER CONCERNS PLEASE RETURN TO THE EMERGENCY ROOM.
Interventions
Interventions:
*Risk Screen - Suicide Last Done: 01/23/24 21:43
*General Assessment Last Done: 01/23/24 21:43
*Neglect/Abuse Screening Last Done: 01/23/24 21:43
*ED COVID-19 Vaccine History Last Done: 01/23/24 22:20
ED- Neurological Assessment Last Done: 01/23/24 22:19
ED-Skin Assessment Last Done: 01/23/24 22:19
Discharge Date and Time
Print Language: CZECH
[2024-01-23 23:05] VITALS: BP 125/68
== END 2024-01-23 23:07 | disposition home or self-care (01) ==
LOC: EMR 21:42
PROVIDERS: EMERGENCY PHYSICIAN Emergency Medicine; FAMILY PHYSICIAN Internal Medicine
DX: S00.01XA Abrasion of scalp, initial encounter (principal); S50.811A Abrasion of right forearm, initial encounter; W22.01XA Walked into wall, initial encounter; I48.91 Unspecified atrial fibrillation; I25.10 Atherosclerotic heart disease of native coronary artery without angina pectoris; I11.0 Hypertensive heart disease with heart failure; I50.9 Heart failure, unspecified; E78.00 Pure hypercholesterolemia, unspecified; E11.9 Type 2 diabetes mellitus without complications; N40.0 Benign prostatic hyperplasia without lower urinary tract symptoms; E85.4 Organ-limited amyloidosis; G47.30 Sleep apnea, unspecified; Z79.01 Long term (current) use of anticoagulants; Z90.49 Acquired absence of other specified parts of digestive tract; Z95.5 Presence of coronary angioplasty implant and graft
CPT/HCPCS: 99284; 70450; 72125

== ENCOUNTER → 2024-01-24 11:43 | Outpatient (REF) | payer MEDICARE, OTHER, SELFPAY ==
[2024-01-24 16:26] LABS: % Basophils 0.8 % (0-2); % Eosinophils 2.1 % (0-6); % Immature Granulocytes 0.4 % (0-0.5); % Lymphocytes 6.6 % (20.5-51.1); % Monocytes 7.8 % (1.7-9.3); % Neutrophils 82.3 % (42.2-75.2); Absolute Basophils 0.1 10^3/uL (0-0.2); Absolute Eosinophils 0.2 10^3/uL (0-0.7); Absolute Lymphocytes 0.6 10^3/uL (1.2-3.4); Absolute Monocytes 0.8 10^3/uL (0.1-0.6); Hematocrit 40.7 % (39.0-52.0); Hemoglobin 12.3 g/dL (13.0-18.0); Mean Corp Hgb Conc. 30.2 g/dL (33.0-37.0); Mean Corpuscular Hgb 28.9 pg (27.0-31.0); Mean Corpuscular Volume 95.5 fL (80.0-94.0); Mean Platelet Volume 10.9 fL (7.4-10.4); Nucleated Red Blood Cells % 0 % (-); Platelet Count 195 10^3/uL (130-400); Red Blood Cell Count 4.26 10^6/uL (4.70-6.10); Red Cell Dist. Width 20.7 % (11.5-14.5); White Blood Cell Count 9.7 10^3/uL (4.8-10.8)
[2024-01-24 16:35] LABS: ALT (SGPT) 19 U/L (0-50); AST (SGOT) 29 U/L (17-59); Alkaline Phosphatase 91 U/L (38-126); Blood Urea Nitrogen 44 mg/dl (9-20); Calcium 9.4 mg/dl (8.4-10.2); Carbon Dioxide 28 mmol/L (22-30); Chloride 103 mmol/L (98-107); Glucose 227 mg/dl (70-99); Iron 80 ug/dl (49-181); Phosphorus 3.8 mg/dl (2.5-4.5); Sodium 139 mmol/L (135-145); Total Bilirubin 1.4 mg/dl (0.2-1.3); Total Protein 6.2 g/dl (6.3-8.2); eGFR 51.77
[2024-01-24 16:44] LABS: Percent Saturation 28 % (20-50); Total Iron Binding Capacity 283 ug/dl (261-462)
[2024-01-24 16:51] LABS: Vitamin D, 25-OH*** 33.6 ng/mL (30-80)
[2024-01-24 17:08] LABS: Ferritin 58.8 ng/ml (17.9-464.0)
== END ==
LOC: HWLAB 11:43
PROVIDERS: ATTENDING PHYSICIAN Internal Medicine Hematology & Oncology; FAMILY PHYSICIAN Internal Medicine
DX: D50.9 Iron deficiency anemia, unspecified (principal); D63.1 Anemia in chronic kidney disease; E85.82 Wild-type transthyretin-related (ATTR) amyloidosis; N18.30 Chronic kidney disease, stage 3 unspecified
CPT/HCPCS: 36415; 80053; 82306; 82728; 83540; 83550; 84100; 85025

== ENCOUNTER → 2024-02-04 17:10 | Outpatient (REF) | payer MEDICARE, OTHER, SELFPAY ==
[2024-02-04 17:38] LABS: % Basophils 0.5 % (0-2); % Eosinophils 2.7 % (0-6); % Immature Granulocytes 0.9 % (0-0.5); % Lymphocytes 7.1 % (20.5-51.1); % Monocytes 7.4 % (1.7-9.3); % Neutrophils 81.4 % (42.2-75.2); Absolute Basophils 0.1 10^3/uL (0-0.2); Absolute Eosinophils 0.3 10^3/uL (0-0.7); Absolute Immature Granulocytes 0.1 10^3/uL (0-0.05); Absolute Lymphocytes 0.7 10^3/uL (1.2-3.4); Absolute Monocytes 0.7 10^3/uL (0.1-0.6); Absolute Neutrophils 7.9 10^3/uL (1.4-6.5); Hematocrit 42.4 % (39.0-52.0); Hemoglobin 13.9 g/dL (13.0-18.0); Mean Corp Hgb Conc. 32.8 g/dL (33.0-37.0); Mean Corpuscular Hgb 28.9 pg (27.0-31.0); Mean Corpuscular Volume 88.1 fL (80.0-94.0); Mean Platelet Volume 9.3 fL (7.4-10.4); Nucleated Red Blood Cells % 0 % (-); Platelet Count 278 10^3/uL (130-400); Red Blood Cell Count 4.81 10^6/uL (4.70-6.10); Red Cell Dist. Width 19.9 % (11.5-14.5); White Blood Cell Count 9.7 10^3/uL (4.8-10.8)
[2024-02-04 17:53] LABS: ALT (SGPT) 21 U/L (0-50); AST (SGOT) 24 U/L (17-59); Albumin 4.2 g/dl (3.5-5.0); Alkaline Phosphatase 97 U/L (38-126); Blood Urea Nitrogen 45 mg/dl (9-20); Calcium 9.7 mg/dl (8.4-10.2); Carbon Dioxide 30 mmol/L (22-30); Chloride 98 mmol/L (98-107); Glucose 214 mg/dl (70-99); Iron 61 ug/dl (49-181); Phosphorus 4.2 mg/dl (2.5-4.5); Potassium 4.4 mmol/L (3.5-5.1); Sodium 137 mmol/L (135-145); Total Bilirubin 1.2 mg/dl (0.2-1.3); Total Protein 6.4 g/dl (6.3-8.2); eGFR 41.01
[2024-02-04 18:02] LABS: Percent Saturation 22 % (20-50); Total Iron Binding Capacity 269 ug/dl (261-462)
[2024-02-04 18:03] LABS: NT-proBNP 5280 pg/ml
[2024-02-04 18:19] LABS: Vitamin D, 25-OH*** 31.9 ng/mL (30-80)
[2024-02-04 18:37] LABS: Ferritin 67.7 ng/ml (17.9-464.0)
== END ==
LOC: REG 17:10
PROVIDERS: ATTENDING PHYSICIAN Internal Medicine Hematology & Oncology; FAMILY PHYSICIAN Internal Medicine; OTHER PHYSICIAN Internal Medicine Cardiovascular Disease
DX: D50.9 Iron deficiency anemia, unspecified (principal); D63.1 Anemia in chronic kidney disease; E85.82 Wild-type transthyretin-related (ATTR) amyloidosis; I48.0 Paroxysmal atrial fibrillation; N18.30 Chronic kidney disease, stage 3 unspecified
CPT/HCPCS: 36415; 80053; 82306; 82728; 83540; 83550; 83880; 84100; 85025

== ENCOUNTER → 2024-02-05 13:55 | Outpatient (REF) | payer MEDICARE, OTHER, SELFPAY ==
[2024-02-05 16:26] LABS: ALT (SGPT) 20 U/L (0-50); AST (SGOT) 24 U/L (17-59); Albumin 4.2 g/dl (3.5-5.0); Alkaline Phosphatase 85 U/L (38-126); Blood Urea Nitrogen 38 mg/dl (9-20); Calcium 9.9 mg/dl (8.4-10.2); Carbon Dioxide 29 mmol/L (22-30); Chloride 102 mmol/L (98-107); Glucose 146 mg/dl (70-99); Magnesium 2.4 mg/dl (1.6-2.3); Potassium 4.5 mmol/L (3.5-5.1); Sodium 140 mmol/L (135-145); Total Bilirubin 1.3 mg/dl (0.2-1.3); Total Protein 6.3 g/dl (6.3-8.2); eGFR 47.65
[2024-02-05 16:39] LABS: Intact PTH 38.8 pg/ml (13.6-85.8)
== END ==
LOC: HWLAB 13:55
PROVIDERS: ATTENDING PHYSICIAN Internal Medicine Cardiovascular Disease; FAMILY PHYSICIAN Internal Medicine; REFERRING PHYSICIAN Emergency Medicine
DX: E85.3 Secondary systemic amyloidosis (principal); I43 Cardiomyopathy in diseases classified elsewhere; N18.31 Chronic kidney disease, stage 3a
CPT/HCPCS: 36415; 80053; 83735; 83970; 84100

== ENCOUNTER → 2024-02-18 16:16 | Outpatient (REF) | payer MEDICARE, OTHER, SELFPAY ==
[2024-02-18 17:51] LABS: Blood Urea Nitrogen 33 mg/dl (9-20); Calcium 9.3 mg/dl (8.4-10.2); Carbon Dioxide 27 mmol/L (22-30); Chloride 100 mmol/L (98-107); Glucose 170 mg/dl (70-99); Potassium 3.8 mmol/L (3.5-5.1); Sodium 138 mmol/L (135-145)
[2024-02-18 18:00] LABS: NT-proBNP 2160 pg/ml
== END ==
LOC: REG 16:16
PROVIDERS: ATTENDING PHYSICIAN Internal Medicine Cardiovascular Disease; FAMILY PHYSICIAN Internal Medicine
DX: I48.0 Paroxysmal atrial fibrillation (principal)
CPT/HCPCS: 36415; 80048; 83880

== ENCOUNTER → 2024-05-14 16:49 | Outpatient (REF) | payer MEDICARE, OTHER, SELFPAY | LOC: RAD 16:49 | PROVIDERS: ATTENDING PHYSICIAN Nurse Practitioner Gerontology; FAMILY PHYSICIAN Internal Medicine | DX: M19.011 Primary osteoarthritis, right shoulder (principal); S40.011A Contusion of right shoulder, initial encounter | CPT/HCPCS: 73030 ==

== ENCOUNTER → 2024-10-04 09:18 | Outpatient (REF) | payer MEDICARE, OTHER, SELFPAY | LOC: MRI 3T 09:18 | PROVIDERS: ATTENDING PHYSICIAN Orthopaedic Surgery; FAMILY PHYSICIAN Internal Medicine | DX: M48.02 Spinal stenosis, cervical region (principal) | CPT/HCPCS: 72141 ==

== ENCOUNTER → 2024-10-09 11:39 | Outpatient (REF) | payer MEDICARE, OTHER, SELFPAY ==
[2024-10-09 11:55] LABS: % Basophils 0.5 % (0-2); % Eosinophils 4.8 % (0-6); % Immature Granulocytes 0.1 % (0-0.5); % Lymphocytes 7.5 % (20.5-51.1); % Neutrophils 79.1 % (42.2-75.2); Absolute Eosinophils 0.4 10^3/uL (0-0.7); Absolute Lymphocytes 0.6 10^3/uL (1.2-3.4); Absolute Monocytes 0.6 10^3/uL (0.1-0.6); Absolute Neutrophils 6.2 10^3/uL (1.4-6.5); Hematocrit 44.2 % (39.0-52.0); Hemoglobin 13.6 g/dL (13.0-18.0); Mean Corp Hgb Conc. 30.8 g/dL (33.0-37.0); Mean Corpuscular Hgb 28.7 pg (27.0-31.0); Mean Corpuscular Volume 93.2 fL (80.0-94.0); Platelet Count 266 10^3/uL (130-400); Red Blood Cell Count 4.74 10^6/uL (4.70-6.10); Red Cell Dist. Width 16.7 % (11.5-14.5); White Blood Cell Count 7.9 10^3/uL (4.8-10.8)
== END ==
LOC: OIDL 11:39
PROVIDERS: ATTENDING PHYSICIAN Internal Medicine Hematology & Oncology
DX: D50.9 Iron deficiency anemia, unspecified (principal)
CPT/HCPCS: 85025

== ENCOUNTER → 2024-10-31 13:11 | Outpatient (REF) | payer MEDICARE, OTHER, SELFPAY ==
[2024-10-31 15:54] LABS: TSH Reflex To Free T4 1.51 uIU/ml (0.47-4.68)
== END ==
LOC: HWLAB 13:11
PROVIDERS: ATTENDING PHYSICIAN Internal Medicine Cardiovascular Disease; FAMILY PHYSICIAN Internal Medicine
DX: I25.10 Atherosclerotic heart disease of native coronary artery without angina pectoris (principal); I10 Essential (primary) hypertension
CPT/HCPCS: 36415; 71046; 84443

== ENCOUNTER → 2024-11-10 16:08 | Outpatient (REF) | payer MEDICARE, OTHER, SELFPAY ==
[2024-11-10 14:23] LABS: % Basophils 0.8 % (0-2); % Eosinophils 4.9 % (0-6); % Immature Granulocytes 0.3 % (0-0.5); % Lymphocytes 8.6 % (20.5-51.1); % Monocytes 7.8 % (1.7-9.3); % Neutrophils 77.6 % (42.2-75.2); Absolute Basophils 0.1 10^3/uL (0-0.2); Absolute Eosinophils 0.4 10^3/uL (0-0.7); Absolute Lymphocytes 0.7 10^3/uL (1.2-3.4); Absolute Monocytes 0.6 10^3/uL (0.1-0.6); Hematocrit 46.3 % (39.0-52.0); Hemoglobin 14.5 g/dL (13.0-18.0); Mean Corp Hgb Conc. 31.3 g/dL (33.0-37.0); Mean Corpuscular Hgb 28.8 pg (27.0-31.0); Platelet Count 225 10^3/uL (130-400); Red Blood Cell Count 5.03 10^6/uL (4.70-6.10); Red Cell Dist. Width 16.7 % (11.5-14.5); White Blood Cell Count 7.8 10^3/uL (4.8-10.8)
[2024-11-10 14:45] LABS: ALT (SGPT) 15 U/L (0-50); AST (SGOT) 22 U/L (17-59); Albumin 4.3 g/dl (3.5-5.0); Alkaline Phosphatase 92 U/L (38-126); Blood Urea Nitrogen 28 mg/dl (9-20); Calcium 9.8 mg/dl (8.4-10.2); Carbon Dioxide 29 mmol/L (22-30); Chloride 104 mmol/L (98-107); Glucose 143 mg/dl (70-99); Potassium 4.5 mmol/L (3.5-5.1); Sodium 143 mmol/L (135-145); Total Bilirubin 1.5 mg/dl (0.2-1.3); Total Protein 6.5 g/dl (6.3-8.2); eGFR 56.23
== END ==
LOC: OIDL 16:08
PROVIDERS: ATTENDING PHYSICIAN Internal Medicine Hematology & Oncology
DX: D50.9 Iron deficiency anemia, unspecified (principal)
CPT/HCPCS: 80053; 85025

== ENCOUNTER → 2024-12-09 11:09 | Outpatient (REF) | payer MEDICARE, OTHER, SELFPAY ==
[2024-12-09 12:04] LABS: % Basophils 1.1 % (0-2); % Eosinophils 4.1 % (0-6); % Immature Granulocytes 0.3 % (0-0.5); % Lymphocytes 11.1 % (20.5-51.1); % Neutrophils 73.4 % (42.2-75.2); Absolute Basophils 0.1 10^3/uL (0-0.2); Absolute Eosinophils 0.3 10^3/uL (0-0.7); Absolute Lymphocytes 0.8 10^3/uL (1.2-3.4); Absolute Monocytes 0.8 10^3/uL (0.1-0.6); Absolute Neutrophils 5.5 10^3/uL (1.4-6.5); Hematocrit 48.8 % (39.0-52.0); Hemoglobin 15.1 g/dL (13.0-18.0); Mean Corp Hgb Conc. 30.9 g/dL (33.0-37.0); Mean Corpuscular Hgb 28.8 pg (27.0-31.0); Mean Corpuscular Volume 93.1 fL (80.0-94.0); Mean Platelet Volume 9.9 fL (7.4-10.4); Nucleated Red Blood Cells % 0 % (-); Platelet Count 227 10^3/uL (130-400); Red Blood Cell Count 5.24 10^6/uL (4.70-6.10); Red Cell Dist. Width 17.2 % (11.5-14.5); White Blood Cell Count 7.5 10^3/uL (4.8-10.8)
[2024-12-09 12:16] LABS: INR 1.34; PT 16.8 Sec (11.4-14.6)
[2024-12-09 12:30] LABS: ALT (SGPT) 14 U/L (0-50); AST (SGOT) 23 U/L (17-59); Albumin 4.2 g/dl (3.5-5.0); Alkaline Phosphatase 83 U/L (38-126); Blood Urea Nitrogen 21 mg/dl (9-20); Calcium 9.9 mg/dl (8.4-10.2); Carbon Dioxide 27 mmol/L (22-30); Chloride 105 mmol/L (98-107); Glucose 109 mg/dl (70-99); Magnesium 1.9 mg/dl (1.6-2.3); Potassium 4.4 mmol/L (3.5-5.1); Sodium 143 mmol/L (135-145); Total Bilirubin 1.8 mg/dl (0.2-1.3); Total Protein 6.7 g/dl (6.3-8.2); eGFR > 60.00
== END ==
LOC: SDSPAT 11:09
PROVIDERS: ATTENDING PHYSICIAN Internal Medicine Cardiovascular Disease; FAMILY PHYSICIAN Internal Medicine; OTHER PHYSICIAN Internal Medicine Cardiovascular Disease
DX: I48.0 Paroxysmal atrial fibrillation (principal)
CPT/HCPCS: 36415; 80053; 83735; 85025; 85610; 86850; 86900; 86901

== ENCOUNTER 2024-12-15 08:29 | Day surgery (SDC) | payer MEDICARE, OTHER, SELFPAY ==
[2024-12-09 11:16] VITALS: BMI 28.1
[2024-12-15] VITALS (24 sets, daily range): BP systolic 87–136; BP diastolic 53–92; BMI 26.8
[2024-12-15 09:20] LABS: Glucose - Point of Care 94 mg/dl (70-99)
[2024-12-15] MEDS: FLOMAX 0.4 MG PO (10:20)
--- NOTE | 2024-12-15 11:18 | ITS.CL.ABL ---
Enrollment Clerk - Ablation
Ablation
Procedure Report:
ELECTROPHYSIOLOGIC STUDY AND POSSIBLE ABLATION
DATE: 12/15/24
Primary Care Provider: Dr Garry Marie
Primary Small Kick Press Operator: Dr Alexis Contreras
INDICATION:
Symptomatic Persistent Atrial Fibrillation.
HISTORY: See H and P.
Symptomatic AF, poorly controlled with attempted medical therapy
His medical history is complicated by his diagnosis of ATTR cardiomyopathy, HFpEF,�coronary artery disease requiring revascularization with PCI of the LAD in 2021.
He is currently on amiodarone to try to maintain rhythm control. Additionally he is anticoagulated with Eliquis 5 mg twice daily given his elevated background thromboembolic risk and in particular his diagnosis of ATTR cardiomyopathy + AF.
Prior arrhythmia history includes ablation for persistent atrial fibrillation in 2018.� He then recurred predominantly with an atrial tachycardia and underwent mapping and ablation to reisolation of pulmonary veins and address several left atrial
reentrant tachycardias in 2019.� He did well for several years but now has recurred with atrial arrhythmias.� Review of current electrocardiogram finds atypical /left atrial flutter
HAS-BLED: 1
Age
CHADSVASc: 3
HTN
Age
DM
PRESENTING RHYTHM: Atrial flutter
HISTORY: See H and P.
Symptomatic AF, poorly controlled with attempted medical therapy.
ANTIARRHYTHMIC DRUG: Amiodarone
ANTICOAGULATION: Eliquis 5 mg twice daily
'TIME-OUT': called and confirmed.
SEDATION/ANESTHESIA: provided via the anesthesia department using general anesthesia.
PROCEDURE:
Ultrasound Guidance with real-time visualization of needle insertion and vessel patency performed by va for femoral venous Vascular Access.
Under real-time US guidance, the needle was advanced with negative pressure into the vein. The needle was seen entering the vessel lumen with a good return of dark red flow, the syringe was removed, non-pulsatile, dark red blood low was noted and
the wire was passed without difficulty, then the needle was removed. US confirmed the wire was in the vein, not going into an artery,
Images were taken and saved for the patient's permanent record. Imaging findings typical femoral venous anatomy. Direct visualization of needle puncture into the femoral vein was observed and recorded.
A decapolar CS catheter was placed within the CS for mapping and pacing.
The intracardiac ultrasound catheter was positioned in the RA for continuous intracardiac ultrasound imaging.
Tachycardia cycle length is 320 ms with earliest activity in the right atrium.
Entrainment mapping which included pacing from the lateral wall of the right atrium and also the cavotricuspid isthmus defines isthmus dependent right atrial flutter.
The Affera multipolar mapping/ablation Sphere-9 catheter was used to map the right atrium. A three-dimensional electroanatomical map (DistalMotiona) of the right atrium is consistent with counterclockwise right atrial flutter by activation mapping. Next
the mapping and ablation catheter was positioned at the CTI. RF energy was delivered at the tricuspid valve annulus and progressively towards the IVC. Closer to the IVC pulsed electric field energy was delivered. During energy delivery the
tachycardia slowed and then terminated. Mapping finds wide double potentials across the ablation line. Furthermore pacing from either side of the line finds a discontinuity in activation consistent with bidirectional block across the CTI.
Next attention was turned to recurrent atrial fibrillation.
Heparin bolus and infusion to target ACT at 300 -350 seconds was administered. Transseptal puncture was performed. This entailed advancing a sheath with dilator into the superior vena cava and withdrawing both (monitoring intracardiac ultrasound,
fluoroscopy and tip pressure) with the tip oriented toward the atrial septum. The fossa ovalis was engaged (indicated by sudden displacement of the sheath tip as well as tenting of the fossa seen on intracardiac ultrasound).
Transseptal puncture was performed. Left atrial catheter position was confirmed by echocardiographic imaging, pressure monitoring (LA mean pressure 17 mm Hg) and fluoroscopy. The sheath was advanced over the dilator and positioned in the left
atrium.
The Affera multipolar mapping/ablation Sphere-9 catheter was positioned through the transseptal sheath for high density mapping.
Geometry and voltage mapping was performed using the DistalMotiona mapping system for three-dimensional electroanatomical mapping.
Catheter positioning was guided and confirmed using both I.C.E. and fluoroscopy.
Mapping finds near complete isolation of the pulmonary veins. There is reconnection at the right superior pulmonary vein along its posterior macie. The posterior wall of the left atrium shows patchy scar.
Pulsed electric field energy applications were delivered to reisolate the right superior pulmonary vein and also to electrically isolate the posterior wall of the left atrium.
Remapping with the Sphere-9 catheter found that all PVPs were eliminated at each vein demonstrating entrance block. Also pacing around the the circumference of the ostia was performed at 10 ma and 2.0 msec output to assess for exit block. This
demonstrated electrical isolation at each of the pulmonary vein ostia (LSPV, LIPV, RSPV, RIPV). There is also entrance and exit block at the LA posterior wall.
Programmed electrostimulation which included burst atrial pacing as well as delivery of atrial decremental extrastimuli down to atrial ERP failed to induce any sustained arrhythmias.
I.C.E. :
Pre-Ablation Post-Ablation
LVEF: 55% 55%
WMA: None none
Pericardial effusion: trace posterior trace posterior
COMPLICATIONS:
None
SUMMARY:
- Mapping and ablation to isolate the PVs
- Additional AF ablation set after PVI.
- Mapping and ablation of second tachycardia (SVT which is typical counterclockwise isthmus dependent right atrial flutter)
- 3-D Electroanatomical Mapping
- Intracardiac Ultrasound
- Ultrasound guidance for vascular access
Post ablation, I discussed today's findings and results with the patient's Kiarra.
RECOMMENDATIONS:
- Observe in monitored bed.
- Maintain oral anticoagulation.
- Discontinue amiodarone
- Office visit with Dr. Alexis Contreras is scheduled for April 17, 2025
Copy to:
Dr Garry Marie
Dr Alexis Contreras
[2024-12-15 12:07] LABS: Glucose - Point of Care 115 mg/dl (70-99)
[2024-12-15 12:10] LABS: ACT-LR - POC 340 Seconds (116-155)
[2024-12-15 12:39] LABS: ACT-LR - POC 318 Seconds (116-155)
[2024-12-15] MEDS: LEVOPHED 250 IV (14:08)
[2024-12-15 14:35] LABS: Glucose - Point of Care 212 mg/dl (70-99)
[2024-12-15 15:33] LABS: ACT-LR - POC > 397 Seconds (116-155)
--- NOTE | 2024-12-15 17:56 | PTCARENOTE ---
Received from feed mill lab technician, VSS, monitor showing SR w/BBB. Right groin site dressing c/d/i, no bleeding, no hematoma noted; +pedal pulses, +cms to toes. at bedside, call serna in reach.
[2024-12-15 18:49] LABS: Glucose - Point of Care 227 mg/dl (70-99)
[2024-12-15] MEDS: ProAmatine 5 MG PO (19:32)
[2024-12-15] MEDS: AMARYL 2 MG PO (19:32)
[2024-12-15] MEDS: LIPITOR 40 MG PO (19:33)
[2024-12-15] MEDS: ELIQUIS 5 MG PO (20:22)
[2024-12-15] MEDS: REQUIP 4 MG PO (20:22)
--- NOTE | 2024-12-15 21:59 | PTCARENOTE ---
Received pt @ change of shift. AAOx3. VSS-- NSR w/ BBB on monitor. Right groin site clean, dry, and intact. Soft to the touch, little ecchymosis. Discussed not getting OOB without the help of the care team. Pt verbalizes understanding. Call serna
within reach.
[2024-12-16 03:46] VITALS: BP 118/87
[2024-12-16 04:05] LABS: Hematocrit 43.1 % (39.0-52.0); Hemoglobin 13.5 g/dL (13.0-18.0); Mean Corp Hgb Conc. 31.3 g/dL (33.0-37.0); Mean Corpuscular Hgb 29.2 pg (27.0-31.0); Mean Corpuscular Volume 93.3 fL (80.0-94.0); Mean Platelet Volume 10.7 fL (7.4-10.4); Platelet Count 187 10^3/uL (130-400); Red Blood Cell Count 4.62 10^6/uL (4.70-6.10); Red Cell Dist. Width 17.1 % (11.5-14.5); White Blood Cell Count 9.1 10^3/uL (4.8-10.8)
[2024-12-16 04:33] LABS: Blood Urea Nitrogen 32 mg/dl (9-20); Calcium 9.2 mg/dl (8.4-10.2); Carbon Dioxide 25 mmol/L (22-30); Chloride 108 mmol/L (98-107); Estimated Creatinine Clearance 48 ml/min; Glucose 199 mg/dl (70-99); Magnesium 1.9 mg/dl (1.6-2.3); Potassium 4.6 mmol/L (3.5-5.1); Sodium 144 mmol/L (135-145); eGFR 56.23
[2024-12-16 07:56] VITALS: BP 114/80
--- NOTE | 2024-12-16 07:59 | W.PN.CARDCBS ---
Addendum entered and electronically signed by Malachi Villaseñor MD 12/16/24 09:31:
Patient seen and examined
Reviewed his ECG which demonstrates sinus rhythm with a marked first-degree AV delay and we are discontinuing amiodarone
Feels well but some fatigue
Agree with ASIAN ART CURATOR note and assessment
Agree with ASIAN ART CURATOR plan
Exam:
Slight pallor
Oriented x 3
Cor regular
Rate radial pulse regular
No respiratory distress
Nonfocal neurologically
ECG from this morning and last night reviewed
Remainder as per prior note
IMPRESSION:
Persistent AFib/AFlutter
s/p AFib/Flutter PFA/RFA, 12/15/24
prior PVI x2 (2017, 2019)
ATTR Cardiomyopathy
Chronic diastolic HFpEF, 55-60%
CAD, LAD PCI (2021)
HTN
HLD
MARGARITA
SDH s/p craniotomy (2021)
orthostatic hypotension
Retinal ischemia
PLAN:
Tele- SR w/prolonged 1st deg AVB as before, no acute changes
Continue Eliquis
discontinue amiodarone given his AV conduction issues
oob ambulating
followup at [facility] as scheduled
Stable for discharge
Original Note:
Today's Communication / Plan
-
Continue eliquis
stop amiodarone
followup at [facility]
home today
Impression / Plan
-
PCP: Garry Mraie MD
CDY: Alexis Contreras MD
79 y/o, presents with recurrent symptomatic AF/AFlutter, poorly controlled with attempted medical therapy. Prior ablation in 2017 with recurrent AT and redo ablation in 2019. Complicated history with ATTR cardiomyopathy, chronic diastolic HFpEF, CAD
w/LAD PCI in 2021. [id number] (age, HTN, CAD, CHF, DM), maintained on eliquis as well as amiodarone for rhythm control.
Presented to EP lab, now s/p redo AFib PFA and AFlutter ablation with PFA and RF.
IMPRESSION:
Persistent AFib/AFlutter
s/p AFib/Flutter PFA/RFA, 12/15/24
prior PVI x2 (2017, 2019)
ATTR Cardiomyopathy
Chronic diastolic HFpEF, 55-60%
CAD, LAD PCI (2021)
HTN
HLD
MARGARITA
SDH s/p craniotomy (2021)
orthostatic hypotension
Retinal ischemia
PLAN:
Tele- SR w/prolonged 1st deg AVB as before, no acute changes
Groin site stable
resume eliquis last evening
discontinue amiodarone
oob ambulating
followup at [facility] as scheduled
home today
Progress Note - Mixed Livestock Farmer
Subjective
Date of Service: December 16, 2024
denies cp/palps/dyspnea
some fatigue with exertion, but states this is normal
groin site without pain
oob ambulating
Objective
Labs:
12/16/24 03:56
12/16/24 03:56
Labs
Hgb 13.5 g/dL (13.0-18.0) 12/16/24 03:56
Hct 43.1 % (39.0-52.0) 12/16/24 03:56
Plt Count 187 10^3/uL (130-400) 12/16/24 03:56
Sodium 144 mmol/L (135-145) 12/16/24 03:56
Potassium 4.6 mmol/L (3.5-5.1) 12/16/24 03:56
BUN 32 mg/dl (9-20) H 12/16/24 03:56
Creatinine 1.3 mg/dL (0.7-1.3) 12/16/24 03:56
Glucose 199 mg/dl (70-99) H 12/16/24 03:56
Vital Signs and I&O:
Vital Signs
Temp Pulse Resp BP Pulse Ox
98 F 77 16 118/87 93
12/15/24 22:24 12/16/24 06:30 12/15/24 22:24 12/16/24 03:46 12/15/24 22:24
Vital Signs
Temp Pulse Resp BP Pulse Ox
98 F 77 16 118/87 93
12/15/24 22:24 12/16/24 06:30 12/15/24 22:24 12/16/24 03:46 12/15/24 22:24
Intake & Output
12/14/24 12/15/24 12/16/24 12/17/24
06:59 06:59 06:59 06:59
Intake Total 120 / 120
Output Total 650 / 650
Balance -530 / -530
Physical Exam
Physical Exam
AAOx3, MAEE 5/5
RRR S1 S2 no murmurs
CTA bilat, non labored
soft abd, + bs
right groin site with mod ecchymosis but non tender, soft, no ht/bleeding
bilat extremities w/palpable distal pulses, +2 pitting edema pedal/ankle bilaterally
[2024-12-16] MEDS: PROTONIX 40 MG PO (08:20)
[2024-12-16] MEDS: FARXIGA 10 MG PO (08:20)
[2024-12-16] MEDS: ZETIA 10 MG PO (08:20)
[2024-12-16] MEDS: DEMADEX 20 MG PO (08:20)
[2024-12-16] MEDS: ELIQUIS 5 MG PO (08:20)
[2024-12-16] MEDS: REQUIP 4 MG PO (08:20)
[2024-12-16] MEDS: ProAmatine 5 MG PO (08:21)
[2024-12-16] MEDS: FLOMAX 0.4 MG PO (08:22)
--- NOTE | 2024-12-16 08:23 | W.DS.TRANS ---
DC Summary - Cook Helper Juice
-
Discharge Instructions:
Sleep Apnea Risk Low
Discharge Diagnosis/Procedures AFib/AFlutter, s/p ablation
Diet Low Cholesterol,Diabetic, Carb Controlled
Driving Restrictions No driving for 24 hours
Instructions:
Stand-Alone Forms: DC Instructions- Cath/EP Lab
Changes to Home Medications: Yes
Discharge Medications:
DC Medications w/original date entered in [employer]
atorvastatin 40 mg tablet 40 mg PO QPM High Cholesterol 06/07/15
pantoprazole 40 mg tablet,delayed release 40 mg PO DAILY Gastrointestinal issue 10/31/21
ropinirole 2 mg tablet 4 mg PO BID restless leg 10/31/21
dapagliflozin propanediol 10 mg tablet (Farxiga) 10 mg PO DAILY Diabetes 01/21/23
ezetimibe 10 mg tablet 10 mg PO DAILY High Cholesterol 01/21/23
tafamidis 61 mg capsule (Vyndamax) 61 mg PO DAILY Cardiomyopathy 01/21/23
tamsulosin 0.4 mg capsule 0.4 mg PO DAILY Urinary Issue 01/21/23
apixaban 5 mg tablet (Eliquis) 5 mg PO BID Blood Clot Prevention/Tx #0 tabs 01/25/23
famotidine 40 mg tablet 40 mg PO DAILY PRN heartburn 08/29/23
fluticasone propionate 50 mcg/actuation nasal spray,suspension 1 spray intranasal DAILY Allergies 08/29/23
torsemide 20 mg tablet 20 mg PO DAILY Heart Failure #30 tabs 09/03/23
metoprolol succinate 25 mg tablet,extended release 24 hr 12.5 mg (1/2 x 25 mg) PO DAILY 30 days #15 tabs 09/10/23
promethazine 25 mg rectal suppository 25 mg [place] Q6H PRN nausea and vomiting #20 ea 12/01/23
dutasteride 0.5 mg capsule 0.5 mg PO QPM 12/15/24
gabapentin 100 mg capsule 200 mg PO QPM restless legs 12/15/24
glimepiride 2 mg tablet 2 mg PO QPM Diabetes 12/15/24
midodrine 5 mg tablet 5 mg PO BID 12/15/24
tirzepatide 2.5 mg/0.5 mL subcutaneous pen injector ([place]) 2.5 mg SC WEEKLY 12/15/24
tramadol 50 mg tablet 50 mg PO DAILY PRN pain 12/15/24
Home Medication Changes
STOP: amiodarone
Pending Results: No
--- NOTE | 2024-12-16 08:47 | W.DS.TRANS ---
Addendum entered and electronically signed by ALFONSO Rivrea 12/16/24 10:36:
ERROR: pt is not taking tamsulosin. It is removed from his home med list.
Original Note:
DC Summary - Game Designer/Creative Director
-
Discharge Instructions:
Sleep Apnea Risk Low
Discharge Diagnosis/Procedures AFib/AFlutter, s/p ablation
Diet Low Cholesterol,Diabetic, Carb Controlled
Driving Restrictions No driving for 24 hours
Instructions:
Stand-Alone Forms: DC Instructions- Cath/EP Lab
Changes to Home Medications: Yes
Discharge Medications:
DC Medications w/original date entered in [email or web address]
atorvastatin 40 mg tablet 40 mg PO QPM High Cholesterol 06/07/15
pantoprazole 40 mg tablet,delayed release 40 mg PO DAILY Gastrointestinal issue 10/31/21
ropinirole 2 mg tablet 4 mg PO BID restless leg 10/31/21
dapagliflozin propanediol 10 mg tablet (Farxiga) 10 mg PO DAILY Diabetes 01/21/23
ezetimibe 10 mg tablet 10 mg PO DAILY High Cholesterol 01/21/23
tafamidis 61 mg capsule (Vyndamax) 61 mg PO DAILY Cardiomyopathy 01/21/23
tamsulosin 0.4 mg capsule 0.4 mg PO DAILY Urinary Issue 01/21/23
apixaban 5 mg tablet (Eliquis) 5 mg PO BID Blood Clot Prevention/Tx #0 tabs 01/25/23
famotidine 40 mg tablet 40 mg PO DAILY PRN heartburn 08/29/23
fluticasone propionate 50 mcg/actuation nasal spray,suspension 1 spray intranasal DAILY Allergies 08/29/23
torsemide 20 mg tablet 20 mg PO DAILY Heart Failure #30 tabs 09/03/23
promethazine 25 mg rectal suppository 25 mg [place] Q6H PRN nausea and vomiting #20 ea 12/01/23
dutasteride 0.5 mg capsule 0.5 mg PO QPM 12/15/24
gabapentin 100 mg capsule 200 mg PO QPM restless legs 12/15/24
glimepiride 2 mg tablet 2 mg PO QPM Diabetes 12/15/24
midodrine 5 mg tablet 5 mg PO BID 12/15/24
tirzepatide 2.5 mg/0.5 mL subcutaneous pen injector (Mounjaro) 2.5 mg SC WEEKLY 12/15/24
tramadol 50 mg tablet 50 mg PO DAILY PRN pain 12/15/24
Home Medication Changes
STOP: amiodarone
Pending Results: No
[2024-12-16] MEDS: NON-FORMULARY ITEM 61 MG PO (08:57)
--- NOTE | 2024-12-16 10:53 | CM ---
Chart reviewed. Patient is independent of ADLS, lives with his in a apartment, elevator access, ambulates with a RW. Plan is for the patient to return home. CM to follow
== END 2024-12-16 11:53 | disposition home or self-care (01) ==
LOC: CATH 08:29
PROVIDERS: Nurse Practitioner; ATTENDING PHYSICIAN Internal Medicine Cardiovascular Disease; FAMILY PHYSICIAN Internal Medicine; OTHER PHYSICIAN Internal Medicine Cardiovascular Disease
DX: I48.19 Other persistent atrial fibrillation (principal); I48.92 Unspecified atrial flutter; I11.0 Hypertensive heart disease with heart failure; I25.10 Atherosclerotic heart disease of native coronary artery without angina pectoris; I50.32 Chronic diastolic (congestive) heart failure; Z95.5 Presence of coronary angioplasty implant and graft; E78.5 Hyperlipidemia, unspecified; D50.9 Iron deficiency anemia, unspecified; Z86.73 Personal history of transient ischemic attack (TIA), and cerebral infarction without residual deficits; H35.82 Retinal ischemia; Z79.899 Other long term (current) drug therapy; Z79.01 Long term (current) use of anticoagulants; Z79.85 Long-term (current) use of injectable non-insulin antidiabetic drugs; I31.39 Other pericardial effusion (noninflammatory); E11.9 Type 2 diabetes mellitus without complications; I44.0 Atrioventricular block, first degree; I95.1 Orthostatic hypotension; I47.19 Other supraventricular tachycardia; I43 Cardiomyopathy in diseases classified elsewhere; Z98.890 Other specified postprocedural states
CPT/HCPCS: C1766; C1730; C1892; C1733; 80048; 82962; 83735; 85027; 85347; 93005; 93655; 93656; 93657; C1760; C1894

== ENCOUNTER → 2024-12-22 14:20 | Outpatient (REF) | payer MEDICARE, OTHER, SELFPAY ==
[2024-12-22 14:27] LABS: % Basophils 0.6 % (0-2); % Eosinophils 3.6 % (0-6); % Immature Granulocytes 0.2 % (0-0.5); % Lymphocytes 9.5 % (20.5-51.1); % Neutrophils 76.1 % (42.2-75.2); Absolute Basophils 0.1 10^3/uL (0-0.2); Absolute Eosinophils 0.3 10^3/uL (0-0.7); Absolute Lymphocytes 0.9 10^3/uL (1.2-3.4); Absolute Monocytes 0.9 10^3/uL (0.1-0.6); Absolute Neutrophils 6.8 10^3/uL (1.4-6.5); Hematocrit 42.7 % (39.0-52.0); Hemoglobin 13.5 g/dL (13.0-18.0); Mean Corp Hgb Conc. 31.6 g/dL (33.0-37.0); Mean Corpuscular Hgb 28.9 pg (27.0-31.0); Mean Corpuscular Volume 91.4 fL (80.0-94.0); Mean Platelet Volume 10.2 fL (7.4-10.4); Platelet Count 225 10^3/uL (130-400); Red Blood Cell Count 4.67 10^6/uL (4.70-6.10); Red Cell Dist. Width 16.7 % (11.5-14.5)
[2024-12-22 15:09] LABS: Iron 70 ug/dl (49-181)
[2024-12-22 15:19] LABS: Percent Saturation 20 % (20-50); Total Iron Binding Capacity 342 ug/dl (261-462)
[2024-12-22 15:57] LABS: Ferritin 23.6 ng/ml (17.9-464.0)
== END ==
LOC: OIDL 14:20
PROVIDERS: ATTENDING PHYSICIAN Internal Medicine Hematology & Oncology
DX: D50.9 Iron deficiency anemia, unspecified (principal); D63.1 Anemia in chronic kidney disease; E85.82 Wild-type transthyretin-related (ATTR) amyloidosis
CPT/HCPCS: 82728; 83540; 83550; 85025

== ENCOUNTER 2025-01-01 13:17 | Emergency (ER) | payer MEDICARE, OTHER, SELFPAY ==
[2025-01-01 13:25] VITALS: BP 123/71
--- NOTE | 2025-01-01 15:18 | ED.GENMED ---
History of Present Illness
<ALFONSO Marinelli - Last Filed: 01/05/25 16:54>
General
Chief Complaint: Musculo-Skeletal Complaint
Source: patient
Exam Limitations: none
Time Seen by Provider: 01/01/25 14:39
Nursing documentation reviewed up to this point in time: agreed with
History of Present Illness
History of Present Illness:
Patient is a 79-year-old male presents to the ER for evaluation. Patient reports the past several days he has had swelling to his left lower leg with bruising. He denies any actual injury but is on Eliquis cardiac amyloidosis/A-fib.
He reports recently he did not notice redness to the area.
He denies any fever or chills.
Past History
<ALFONSO Marinelli - Last Filed: 01/05/25 16:54>
Past History
ED Past Medical History: Arrthythmia (Atrial fibrillation), CAD, CHF, HTN, Hypercholesterolemia, NIDDM and Other (bph, anemia-Iron Infusions, Kidney disease, Subdural hematoma, Cardiac Amyloidosis, Sleep apnea uses CPAP)
ED Past Surgical History: Cardiac (Stent, Ablation), Cholecystectomy, Orthopedic (Bilateral carpal tunnel, Left and right rotator cuff repair, Back surgery X 2, Right ankle surgery, ) and Other (Craniotomy)
Social History
Tobacco: Non-smoker
Alcohol: None
Drug: None
Personal:
Living: with family
Employment: Retired
Family History
Family History: Other (Noncontributory)
Review of Systems
<ALFONSO Marinelli - Last Filed: 01/05/25 16:54>
Review of Systems
Allergies reviewed?: Yes
All Other Systems: ROS reviewed and negative except as documented in HPI and ROS
Constitutional: Reports no symptoms
Respiratory: Reports no symptoms; Denies trouble breathing
Cardiac: Reports no symptoms
Phy Exam
<ALFONSO Marinelli - Last Filed: 01/05/25 16:54>
General Physical Exam
General Presentation: no apparent distress
General age: appears stated age
General Skin: warm and dry
General Mental: alert
Neurological Exam
Neurological Exam: alert and oriented x3
Musculoskeletal Exam
Musculoskeletal Exam: other (Left lower extremity some pulses lower anterior leg with small area of ecchymosis with surrounding swelling and mild erythema nontender, minimal erythema to the anterior lower leg not circumferential, no lymphangitis)
Skin Exam
Skin Exam: normal color and warm/dry
Psychiatric Exam
Psychiatric Exam: normal mood/affect
Course
<ALFONSO Marinelli - Last Filed: 01/05/25 16:54>
Orders/Labs/Results
Orders:
Orders
01/01/25 13:27
US Periph Venous LOWER Ext LT Urgent
Comment:
Reason For Exam: swelling post injury
01/01/25 15:59
Complete Blood Count/With Diff Urgent
Comprehensive Metabolic Panel Urgent
CeFAZolin 1 GRAM [Ancef] 1 gram in 5 ml IV NOW
01/01/25 16:09
CeFAZolin 2 GRAM [Ancef] 2 grams in 10 ml IV NOW
Abnormal Lab Results
01/01/25
15:59
MCHC 31.8 L g/dL
(33.0-37.0)
RDW 17.2 H %
(11.5-14.5)
Absolute Lymphs (auto) 0.6 L 10^3/uL
(1.2-3.4)
Neutrophils % 76.4 H %
(42.2-75.2)
Lymphocytes % 9.2 L %
(20.5-51.1)
Chloride 109 H mmol/L
(98-107)
BUN 33 H mg/dl
(9-20)
Glucose 100 H mg/dl
(70-99)
Total Bilirubin 2.3 H mg/dl
(0.2-1.3)
01/01/25 15:59
01/01/25 15:59
Vital Signs
Initial and Last Documented VS:
Initial Vital Signs
Temp Pulse Resp BP Pulse Ox
97.7 F 65 16 123/71 99
01/01/25 13:25 01/01/25 13:25 01/01/25 13:25 01/01/25 13:25 01/01/25 13:25
Last Documented Vital Signs
Temp Pulse Resp BP Pulse Ox
97.7 F 65 16 123/71 99
01/01/25 13:25 01/01/25 13:25 01/01/25 13:25 01/01/25 13:25 01/01/25 13:25
<Jenni Renteria, SYSTEMS INTEGRATION MANAGER - Last Filed: 01/01/25 23:52>
Orders/Labs/Results
Orders:
Orders
01/01/25 13:27
US Periph Venous LOWER Ext LT Urgent
Comment:
Reason For Exam: swelling post injury
01/01/25 15:59
Complete Blood Count/With Diff Urgent
Comprehensive Metabolic Panel Urgent
CeFAZolin 1 GRAM [Ancef] 1 gram in 5 ml IV NOW
01/01/25 16:09
CeFAZolin 2 GRAM [Ancef] 2 grams in 10 ml IV NOW
Abnormal Lab Results
01/01/25
15:59
MCHC 31.8 L g/dL
(33.0-37.0)
RDW 17.2 H %
(11.5-14.5)
Absolute Lymphs (auto) 0.6 L 10^3/uL
(1.2-3.4)
Neutrophils % 76.4 H %
(42.2-75.2)
Lymphocytes % 9.2 L %
(20.5-51.1)
Chloride 109 H mmol/L
(98-107)
BUN 33 H mg/dl
(9-20)
Glucose 100 H mg/dl
(70-99)
Total Bilirubin 2.3 H mg/dl
(0.2-1.3)
01/01/25 15:59
01/01/25 15:59
Vital Signs
Initial and Last Documented VS:
Initial Vital Signs
Temp Pulse Resp BP Pulse Ox
97.7 F 65 16 123/71 99
01/01/25 13:25 01/01/25 13:25 01/01/25 13:25 01/01/25 13:25 01/01/25 13:25
Last Documented Vital Signs
Temp Pulse Resp BP Pulse Ox
97.7 F 65 16 123/71 99
01/01/25 13:25 01/01/25 13:25 01/01/25 13:25 01/01/25 13:25 01/01/25 13:25
<ALFONSO Marinelli - Last Filed: 01/05/25 16:54>
MDM/Problems Addressed
MDM/Problems Addressed:
No evidence of DVT on ultrasound. With mild erythema mild swelling will treat for possible mild cellulitis patient denies any fevers and is afebrile. First dose of Ancef given here in the ER.
<ALFONSO Marinelli - Last Filed: 01/05/25 16:54>
*Radiology
Radiology exam reviewed: radiology read reviewed
*Pulse Oximetry
Patient hypoxic: no
<Jenni Renteria NP - Last Filed: 01/01/25 23:52>
*Critical Care Note
Total Time (30-74mins, 75-104mins- exclusive of procedures): Not Applicable
<Jenni Renteria NP - Last Filed: 01/01/25 23:52>
Update Note
Update Note:
CMP reviewed, TBILI 2.3 noted. Patient denies any abd. symptoms. Abd soft nontender. Will continue with discharge plan. Given instructions on s/s to return to ED.
ED Attending Note
<ALFONSO Marinelli - Last Filed: 01/05/25 16:54>
-
Portions of this chart may have been created with voice recognition software.� Occasional wrong word or��sound alike� substitutions may have occurred due to the inherent limitations of voice recognition software.
Discharge Plan
Departure
Patient Disposition: Home (Routine Discharge)
Date of Disposition: 01/01/25
Time of Disposition: 16:52
Patient with high blood pressure during this ER visit?: No
Condition: Fair
Covid-19: Not Applicable
Discharge Problem:
Cellulitis of left leg
Instructions: Cellulitis (skin infection) in adults - Discharge instructions
Prescriptions:
New
cephalexin 500 mg capsule
500 mg PO Q6H Qty: 28 0RF
No Action
atorvastatin 40 MG tablet
40 mg PO QPM
ropinirole 2 MG tablet
4 mg PO BID
pantoprazole 40 MG tablet,delayed release (DR/EC)
40 mg PO DAILY
ezetimibe 10 mg Tablet
10 mg PO DAILY
dapagliflozin propanediol [Farxiga] 10 mg Tablet
10 mg PO DAILY
Vyndamax 61 mg Capsule
61 mg PO DAILY
Eliquis 5 mg Tablet
5 mg PO BID Qty: 0 0RF
famotidine 40 mg Tablet
40 mg PO DAILY PRN (Reason: heartburn)
fluticasone propionate 50 mcg/actuation [place],Suspension
1 spray INTRANASAL DAILY
torsemide 20 mg tablet
20 mg PO DAILY Qty: 30 11RF
promethazine 25 mg suppository
25 mg [place] Q6H PRN (Reason: nausea and vomiting) Qty: 20 0RF
Mounjaro 2.5 mg/0.5 mL Pen Injector
2.5 mg SC WEEKLY
midodrine 5 mg Tablet
5 mg PO BID
tramadol 50 mg Tablet
50 mg PO DAILY PRN (Reason: pain)
dutasteride 0.5 mg Capsule
0.5 mg PO QPM
glimepiride 2 mg tablet
2 mg PO QPM
gabapentin 100 mg capsule
200 mg PO QPM
Referrals:
Garry Marie MD [Family Provider] -
Activity Restrictions/Additional Instructions:
As discussed antibiotics every 6 hours for skin infection. You were given IV dose here in the ER you may take additional dose this evening before bed. Follow-up with family doctor in the next 2 days for reevaluation. Return however to the ER for
any worsening of symptoms of increased pain swelling redness red streaking fever or chills.
Interventions
Interventions:
*Risk Screen - Suicide Last Done: 01/01/25 17:00
*General Assessment Last Done: 01/01/25 15:15
*Neglect/Abuse Screening Last Done: 01/01/25 17:00
*ED COVID-19 Vaccine History Last Done: 01/01/25 15:15
*Nursing Disposition Last Done: 01/01/25 17:00
ED-Musculoskeletal Assessment Last Done: 01/01/25 15:15
Discharge Date and Time
Discharge Date/Time: 01/01/25 17:16
Print Language: KHMER
[2025-01-01 16:07] LABS: % Basophils 0.7 % (0-2); % Eosinophils 4.2 % (0-6); % Immature Granulocytes 0.3 % (0-0.5); % Lymphocytes 9.2 % (20.5-51.1); % Monocytes 9.2 % (1.7-9.3); % Neutrophils 76.4 % (42.2-75.2); Absolute Basophils 0.1 10^3/uL (0-0.2); Absolute Eosinophils 0.3 10^3/uL (0-0.7); Absolute Lymphocytes 0.6 10^3/uL (1.2-3.4); Absolute Monocytes 0.6 10^3/uL (0.1-0.6); Absolute Neutrophils 5.2 10^3/uL (1.4-6.5); Hematocrit 44.4 % (39.0-52.0); Hemoglobin 14.1 g/dL (13.0-18.0); Mean Corp Hgb Conc. 31.8 g/dL (33.0-37.0); Mean Corpuscular Hgb 29.2 pg (27.0-31.0); Mean Corpuscular Volume 91.9 fL (80.0-94.0); Mean Platelet Volume 10.3 fL (7.4-10.4); Nucleated Red Blood Cells % 0 % (-); Platelet Count 196 10^3/uL (130-400); Red Blood Cell Count 4.83 10^6/uL (4.70-6.10); Red Cell Dist. Width 17.2 % (11.5-14.5); White Blood Cell Count 6.8 10^3/uL (4.8-10.8)
[2025-01-01 16:31] LABS: ALT (SGPT) 16 U/L (0-50); AST (SGOT) 23 U/L (17-59); Albumin 4.4 g/dl (3.5-5.0); Alkaline Phosphatase 99 U/L (38-126); Blood Urea Nitrogen 33 mg/dl (9-20); Calcium 9.5 mg/dl (8.4-10.2); Carbon Dioxide 26 mmol/L (22-30); Chloride 109 mmol/L (98-107); Glucose 100 mg/dl (70-99); Potassium 4.3 mmol/L (3.5-5.1); Sodium 142 mmol/L (135-145); Total Bilirubin 2.3 mg/dl (0.2-1.3); Total Protein 6.9 g/dl (6.3-8.2); eGFR 56.23
[2025-01-01] MEDS: ANCEF 10 IV ×2 (16:31→16:32)
== END 2025-01-01 17:16 | disposition home or self-care (01) ==
LOC: EMR 13:17
PROVIDERS: Nurse Practitioner; EMERGENCY PHYSICIAN Emergency Medicine; FAMILY PHYSICIAN Internal Medicine
DX: L03.116 Cellulitis of left lower limb (principal); I25.10 Atherosclerotic heart disease of native coronary artery without angina pectoris; R60.0 Localized edema; I11.0 Hypertensive heart disease with heart failure; I50.9 Heart failure, unspecified; E78.00 Pure hypercholesterolemia, unspecified; I13.0 Hypertensive heart and chronic kidney disease with heart failure and stage 1 through stage 4 chronic kidney disease, or unspecified chronic kidney disease; E11.22 Type 2 diabetes mellitus with diabetic chronic kidney disease; N18.30 Chronic kidney disease, stage 3 unspecified; N40.0 Benign prostatic hyperplasia without lower urinary tract symptoms; I48.91 Unspecified atrial fibrillation; G47.30 Sleep apnea, unspecified; E85.4 Organ-limited amyloidosis; I48.92 Unspecified atrial flutter; Z79.01 Long term (current) use of anticoagulants; Z95.5 Presence of coronary angioplasty implant and graft; Z90.49 Acquired absence of other specified parts of digestive tract
CPT/HCPCS: 80053; 85025; 93971; 96374; 99284

== ENCOUNTER → 2025-01-12 15:31 | Outpatient (REF) | payer MEDICARE, OTHER, SELFPAY ==
[2025-01-12 12:17] LABS: % Basophils 0.6 % (0-2); % Eosinophils 6.4 % (0-6); % Immature Granulocytes 0.2 % (0-0.5); % Lymphocytes 10.5 % (20.5-51.1); % Monocytes 9.6 % (1.7-9.3); % Neutrophils 72.7 % (42.2-75.2); Absolute Eosinophils 0.4 10^3/uL (0-0.7); Absolute Lymphocytes 0.7 10^3/uL (1.2-3.4); Absolute Monocytes 0.6 10^3/uL (0.1-0.6); Absolute Neutrophils 4.5 10^3/uL (1.4-6.5); Hematocrit 41.8 % (39.0-52.0); Hemoglobin 12.9 g/dL (13.0-18.0); Mean Corp Hgb Conc. 30.9 g/dL (33.0-37.0); Mean Corpuscular Hgb 28.8 pg (27.0-31.0); Mean Corpuscular Volume 93.3 fL (80.0-94.0); Mean Platelet Volume 9.7 fL (7.4-10.4); Platelet Count 204 10^3/uL (130-400); Red Blood Cell Count 4.48 10^6/uL (4.70-6.10); Red Cell Dist. Width 16.7 % (11.5-14.5); White Blood Cell Count 6.2 10^3/uL (4.8-10.8)
== END ==
LOC: OIDL 15:31
PROVIDERS: ATTENDING PHYSICIAN Internal Medicine Hematology & Oncology
DX: D50.9 Iron deficiency anemia, unspecified (principal); D63.1 Anemia in chronic kidney disease; E85.82 Wild-type transthyretin-related (ATTR) amyloidosis
CPT/HCPCS: 85025

== ENCOUNTER → 2025-01-26 15:37 | Outpatient (REF) | payer MEDICARE, OTHER, SELFPAY ==
[2025-01-26 14:15] LABS: % Basophils 0.3 % (0-2); % Eosinophils 4.5 % (0-6); % Immature Granulocytes 0.1 % (0-0.5); % Lymphocytes 7.9 % (20.5-51.1); % Monocytes 8.7 % (1.7-9.3); % Neutrophils 78.5 % (42.2-75.2); Absolute Eosinophils 0.4 10^3/uL (0-0.7); Absolute Lymphocytes 0.6 10^3/uL (1.2-3.4); Absolute Monocytes 0.7 10^3/uL (0.1-0.6); Hemoglobin 12.8 g/dL (13.0-18.0); Mean Corpuscular Hgb 29.4 pg (27.0-31.0); Mean Platelet Volume 10.1 fL (7.4-10.4); Platelet Count 205 10^3/uL (130-400); Red Blood Cell Count 4.35 10^6/uL (4.70-6.10); Red Cell Dist. Width 16.6 % (11.5-14.5); White Blood Cell Count 7.7 10^3/uL (4.8-10.8)
== END ==
LOC: OIDL 15:37
PROVIDERS: ATTENDING PHYSICIAN Internal Medicine Hematology & Oncology
DX: D50.9 Iron deficiency anemia, unspecified (principal); D63.1 Anemia in chronic kidney disease; E85.82 Wild-type transthyretin-related (ATTR) amyloidosis
CPT/HCPCS: 85025

== ENCOUNTER → 2025-02-16 16:58 | Outpatient (REF) | payer MEDICARE, OTHER, SELFPAY ==
[2025-02-16 14:28] LABS: Hematocrit 41.7 % (39.0-52.0); Hemoglobin 13.4 g/dL (13.0-18.0); Mean Corp Hgb Conc. 32.1 g/dL (33.0-37.0); Mean Corpuscular Volume 90.5 fL (80.0-94.0); Platelet Count 223 10^3/uL (130-400); Red Cell Dist. Width 15.9 % (11.5-14.5)
== END ==
LOC: OIDL 16:58
PROVIDERS: ATTENDING PHYSICIAN Internal Medicine Hematology & Oncology
DX: D50.9 Iron deficiency anemia, unspecified (principal); D53.1 Other megaloblastic anemias, not elsewhere classified; E85.82 Wild-type transthyretin-related (ATTR) amyloidosis
CPT/HCPCS: 85025